=== PATIENT | female | born 1965 | race African-American/Black ===

== ENCOUNTER 2017-03-31 08:43 | Emergency (ER) | payer OTHER ==
[~2017-03-31] VITALS: Ht 154.9 cm; Wt 77.1 kg
[~2017-03-31 08:43] MED LIST: ATORVASTATIN CA10 MG ORAL; CIPROFLOXACIN500 M2 ORAL; CYCLOBENZAPRINE10 MG ORAL; FLUCONAZOLE100 MG ORAL; IBUPROFEN600 MG ORAL; ISENTRESS400 MG ORAL; MYCOSTATIN100000 UNI ORO; NORVIR100 MG ORAL; PREZISTA600 MG ORAL; PRILOSEC20 MG ORAL; ZOFRAN ODT4 MG ORAL; ZOFRAN4 MG ORAL
[2017-03-31 08:57] VITALS: BP 118/88
--- NOTE | 2017-03-31 09:43 | Emergency Room Report ---
History of Present Illness General Chief Complaint: Earache Source: Patient Present Illness HPI Patient states that she has been swimming a lot really and last week she noticed a sensation of something was cloudy her ear. She states that over the weekend she developed pain in her right ureter. She states that it also radiates her right jaw. She denies ear discharge. Denies fever or chills. She denies neck pain or difficulty swallowing. She has no other complaints. Allergies: Coded Allergies: SHELLFISH DERIVED (Unverified Allergy, Unknown, 07/26/16) Uncoded Allergies: SHELLFISH (Allergy, Unknown, 07/26/16) Patient History Past Medical History: see triage record, seizures, HIV Social History: Denies: alcohol use, drug use, smoking Last Menstrual Period: irreg Now: No Reviewed Nursing Documentation: PMH: Agreed, PSxH: Agreed Nursing Documentation-PMH Past Medical History: No History, Except For Hx Cancer: No Hx Gastrointestinal Problems: No Hx Neurological Problems: Yes Hx Cerebrovascular Accident: Yes - Seizure Hx Seizures: Yes Hx Headaches: Yes Hx Weakness: Yes Review of Systems All Other Systems: negative except mentioned in HPI Physical Exam Vital Signs Date Time Temp Pulse Resp B/P Pulse Ox O2 Delivery O2 Flow Rate FiO2 03/31/17 08:57 97.9 87 18 118/88 98 Room Air Sp02 EP Interpretation: reviewed, normal General Appearance: no apparent distress, alert, GCS 15, non-toxic Head: normocephalic, atraumatic Eyes: bilateral eye PERRL, bilateral eye normal inspection ENT: hearing grossly normal, normal pharynx, no angioedema, normal voice, uvula midline, other - R. External canal with swelling and +pustule inferior mid canal. +cerumen, unable to visualized TM. Neck: full range of motion, supple/symm/no masses Respiratory: no respiratory distress, no retraction, no accessory muscle use, speaking full sentences Cardiovascular #1: no edema Gastrointestinal: normal inspection, non-distended Rectal: deferred Musculoskeletal: back normal, gait/station normal, normal range of motion Neurologic: alert, oriented x3, responsive, motor strength/tone normal, sensory intact, speech normal Psychiatric: judgement/insight normal, memory normal, mood/affect normal, no suicidal/homicidal ideation Skin: normal color, no rash, warm/dry, well hydrated Medical Decision Making Diagnostic Impression: Primary Impression: Otitis externa ER Course This patient has clinical findings consistent with otitis externa. I will place the patient on topical eardrops. However, the patient does have a history of HIV and may be immunocompromised, so will give the patient a prescription for oral antibiotics but she was instructed to only use the antibiotics if she does not feel or get improvement in her ear pain in the next 48 hours. She's also instructed to take the oral antibiotics if she has worsening symptoms or development of fever. There is no evidence of facial abscess or other complications at this time. The patient's given close return precautions and followup instructions. Last Vital Signs Date Time Temp Pulse Resp B/P Pulse Ox O2 Delivery O2 Flow Rate FiO2 03/31/17 08:57 97.9 87 18 118/88 98 Room Air Status: improved Disposition: HOME, SELF-CARE Condition: Improved Referrals: [facility],REFERRING (PCP) Patient Instructions: Otitis Externa, [id number] DENIS MEIER D.O. March 31, 2017 09:43
[2017-03-31] MEDS ORDERED: AUGMENTIN 875-1 EAC1 ORAL (09:53)
[2017-03-31] MEDS ORDERED: FLOXIN10 ML OT (09:53)
[2017-03-31 10:03] VITALS: BP 118/88
== END 2017-03-31 10:03 | disposition home or self-care (01) ==
LOC: EMR 09:20
DX: H66.91 Otitis media, unspecified, right ear (principal); R68.84 Jaw pain; Z91.013 Allergy to seafood; Z86.73 Personal history of transient ischemic attack (TIA), and cerebral infarction without residual deficits
CPT/HCPCS: 99284

== ENCOUNTER 2017-06-08 13:13 | Emergency (ER) | payer OTHER ==
[~2017-06-08] VITALS: Ht 154.9 cm; Wt 79.4 kg
[~2017-06-08 13:13] MED LIST changes: +AUGMENTIN 875-1 EAC1 ORAL; +FLOXIN10 ML OT
[2017-06-08 13:27] VITALS: BP 121/78
[2017-06-08] MEDS ORDERED: PERMETHRIN60 GM TOPIC (13:47)
[2017-06-08 13:54] VITALS: BP 121/78
--- NOTE | 2017-06-08 20:39 | Emergency Room Report ---
History of Present Illness General Chief Complaint: Skin Rash/Abscess Source: Patient, Medical Record Present Illness HPI The patient is a 51-year-old female with a history of HIV presenting for rash. She states that she's had scabies in the past and this feels the same. She has seen lesions on the arms and legs primarily for the past month described as itchy and denies any pain. She denies any other symptoms Allergies: Coded Allergies: SHELLFISH DERIVED (Unverified Allergy, Unknown, 07/26/16) Uncoded Allergies: SHELLFISH (Allergy, Unknown, 07/26/16) Patient History Past Medical History: see triage record Pertinent Family History: none Reviewed Nursing Documentation: PMH: Agreed, PSxH: Agreed Nursing Documentation-PMH Past Medical History: No History, Except For Hx Cancer: No Hx Gastrointestinal Problems: No Hx Neurological Problems: Yes Hx Cerebrovascular Accident: Yes Hx Seizures: Yes - Last one 25 yrs ago Hx Headaches: Yes Hx Weakness: Yes Review of Systems All Other Systems: negative except mentioned in HPI Physical Exam Vital Signs Date Time Temp Pulse Resp B/P Pulse Ox O2 Delivery O2 Flow Rate FiO2 06/08/17 13:21 98.8 95 16 121/78 98 Room Air Sp02 EP Interpretation: reviewed, normal General Appearance: no apparent distress, alert, GCS 15, non-toxic Head: normocephalic, atraumatic Eyes: bilateral eye PERRL, bilateral eye normal inspection Genitourinary: normal inspection, no CVA tenderness Musculoskeletal: back normal, gait/station normal, normal range of motion, non- tender Neurologic: alert, oriented x3, responsive, motor strength/tone normal, sensory intact, speech normal Psychiatric: judgement/insight normal, memory normal, mood/affect normal, no suicidal/homicidal ideation Skin: rash - There are erythematous lesions in a linear pattern of the arms and legs. + excoriation markings Lymphatic: no adenopathy Medical Decision Making PA Attestation Dr. Tran is my supervising physician. Patient management was discussed with my supervising physician Diagnostic Impression: Primary Impression: Scabies ER Course The patient is a 51-year-old female with a history of HIV presenting for rash. Ddx considered include but not limited to insect bite, contact dermatitis, eczema, cellulitis, scabies, among others PE consistent with scabies. She will be MI'ed home with prescription for permethrin. ER precautions given Last Vital Signs Date Time Temp Pulse Resp B/P Pulse Ox O2 Delivery O2 Flow Rate FiO2 06/08/17 13:54 98.8 95 16 121/78 98 Room Air Status: improved Disposition: HOME, SELF-CARE Condition: Improved Scripts Permethrin* (ELIMITE*) 60 Gm Cream..g. 1 APPLIC TOPIC ONCE, #60 GM 0 Refills Apply cream from head to toe; leave on for 8-14 hours before washing off with water; may reapply in 1 week if live mites appear. Prov: LORY COLEY 06/08/17 Patient Instructions: Pruritus, Scabies, Pediatric Additional Instructions: I discussed my findings with the patient. All questions and concerns have been answered. Treatment and medication compliance have been addressed. I advised the patient that they need to follow up with PMD in 3-5 days. Return to ED if symptoms worsen, new symptoms arise, or if needed for any reason. Patient verbalized understanding of discharge instructions. LORY COLEY Jun 08, 2017 20:39
== END 2017-06-08 15:30 | disposition home or self-care (01) ==
LOC: EMR 13:40
DX: B86 Scabies (principal); Z86.73 Personal history of transient ischemic attack (TIA), and cerebral infarction without residual deficits; Z91.013 Allergy to seafood
CPT/HCPCS: 99283

== ENCOUNTER 2017-11-22 19:45 | Emergency (ER) | payer OTHER ==
[~2017-11-22] VITALS: Ht 154.9 cm; Wt 81.6 kg
[~2017-11-22 19:45] MED LIST changes: +PERMETHRIN60 GM TOPIC
[2017-11-22] MEDS ORDERED: Ipratropium 0.02% Inh Soln 2.5ml UD HHN ONE (20:15)
[2017-11-22] MEDS ORDERED: Ketorolac 30mg Inj IV ONE (20:15)
[2017-11-22] MEDS ORDERED: Albuterol ud Inhalation HHN ONE (20:15)
[2017-11-22 20:30] LABS: APPEARANCE,URINE CLEAR; BILIRUBIN, URINE NEGATIVE (NEGATIVE); COLOR,URINE PALE YELLOW; GLUCOSE, URINE (UA) NEGATIVE (NEGATIVE); KETONES,URINE NEGATIVE (NEGATIVE); LEUKOCYTE ESTERASE ,URINE 1+ (NEGATIVE); NITRITE,URINE NEGATIVE (NEGATIVE); PH,URINE 7 (4.5-8.0); PROTEIN,URINE NEGATIVE (NEGATIVE); UROBILINOGEN,URINE NORMAL MG/DL (0.0-1.0)
[2017-11-22 21:59] VITALS: BP 130/84
[2017-11-22 22:21] LABS: ANION GAP 7 mmol/L (5-15); BLOOD UREA NITROGEN 14 mg/dL (7-18); CALCIUM 8.6 MG/DL (8.5-10.1); CARBON DIOXIDE 31 MMOL/L (21-32); CHLORIDE 103 MMOL/L (98-107); CREATININE 0.9 MG/DL (0.55-1.30); POTASSIUM 3.4 MMOL/L (3.5-5.1); SODIUM 141 MMOL/L (136-145)
[2017-11-22 22:24] LABS: BASOPHILS % (AUTO) 0.7 % (0.0-2.0); EOSINOPHILS % (AUTO) 0.3 % (0.0-3.0); HEMATOCRIT 43.2 % (37.0-47.0); LYMPHOCYTES % (AUTO) 23.7 % (20.0-45.0); MEAN CORPUSCULAR VOLUME 90 FL (80-99); MONOCYTES % (AUTO) 6.7 % (1.0-10.0); NEUTROPHILS % (AUTO) 68.6 % (45.0-75.0); PLATELET COUNT 236 K/UL (150-450); RED BLOOD COUNT 4.81 M/UL (4.20-5.40); RED CELL DISTRIBUTION WIDTH 12.1 % (11.6-14.8); WHITE BLOOD COUNT 6.8 K/UL (4.8-10.8)
[2017-11-22 22:35] LABS: ALANINE AMINOTRANSFERASE 18 U/L (12-78); ALBUMIN 4.3 G/DL (3.4-5.0); ALKALINE PHOSPHATASE 144 U/L (46-116); ASPARTATE AMINO TRANSFERASE 22 U/L (15-37); BILIRUBIN,TOTAL 0.2 MG/DL (0.2-1.0); CKMB 0.5 NG/ML (0.0-3.6); CREATINE KINASE 274 U/L (26-308)
[2017-11-22] MEDS ORDERED: ALBUTEROL SULF8.5 GM INH (22:48)
[2017-11-22] MEDS ORDERED: PREDNISONE20 MG ORAL (22:48)
[2017-11-22] MEDS ORDERED: AMOXICILLIN500 MG ORAL (22:48)
[2017-11-22 23:15] VITALS: BP 130/84
--- NOTE | 2017-11-22 23:15 | Emergency Room Report ---
History of Present Illness General Chief Complaint: Dyspnea/Respdistress Source: Patient Present Illness HPI 52-year-old female presents ED complaining of shortness of breath started 2 days ago. Patient has difficulty with deep breaths. Notes cough. Denies fevers chills. Denies chest pain. Also complaining of generalized bodyaches, 8 and 10, throbbing, nonradiating. States she feels weak. Patient has history of HIV and is compliant with her medications. Denies sick contacts or recent travel. No aggravating relieving factors. Denies any other associated symptoms Allergies: Coded Allergies: SHELLFISH DERIVED (Unverified Allergy, Unknown, 07/26/16) Uncoded Allergies: SHELLFISH (Allergy, Unknown, 07/26/16) Patient History Past Medical History: HIV Past Surgical History: none Pertinent Family History: none Social History: Denies: smoking, alcohol use, drug use Last Menstrual Period: NA Now: No Immunizations: UTD Reviewed Nursing Documentation: PMH: Agreed, PSxH: Agreed Nursing Documentation-PMH Hx Cancer: No Hx Gastrointestinal Problems: No Hx Neurological Problems: Yes Hx Cerebrovascular Accident: Yes Hx Seizures: Yes - Last one 25 yrs ago Hx Headaches: Yes Hx Weakness: Yes Review of Systems All Other Systems: negative except mentioned in HPI Physical Exam Vital Signs Date Time Temp Pulse Resp B/P (MAP) Pulse Ox O2 Delivery O2 Flow Rate FiO2 11/22/17 19:54 100.9 121 12 125/80 97 Room Air Sp02 EP Interpretation: reviewed, normal General Appearance: no apparent distress, alert, GCS 15, non-toxic Head: normocephalic, atraumatic Eyes: bilateral eye normal inspection, bilateral eye PERRL ENT: hearing grossly normal, normal pharynx, no angioedema, normal voice Neck: full range of motion, supple/symm/no masses Respiratory: chest non-tender, decreased breath sounds, speaking full sentences Cardiovascular #1: regular rate, rhythm, no edema Cardiovascular #2: 2+ carotid (R), 2+ carotid (L), 2+ radial (R), 2+ radial (L) , 2+ dorsalis pedis (R), 2+ dorsalis pedis (L) Gastrointestinal: normal bowel sounds, non tender, soft, non-distended, no guarding, no rebound Rectal: deferred Genitourinary: normal inspection, no CVA tenderness Musculoskeletal: back normal, gait/station normal, normal range of motion, non- tender Neurologic: alert, oriented x3, responsive, motor strength/tone normal, sensory intact, speech normal Psychiatric: judgement/insight normal, memory normal, mood/affect normal, no suicidal/homicidal ideation Reflexes: 3+ bicep (R), 3+ bicep (L), 3+ tricep (R), 3+ tricep (L), 3+ knee (R) , 3+ knee (L) Skin: normal color, no rash, warm/dry, well hydrated Lymphatic: no adenopathy Medical Decision Making Diagnostic Impression: Primary Impression: Atypical pneumonia ER Course Hospital Course 52-year-old female presents ED complaining of bodyaches, weakness, shortness of breath Differential diagnoses include: URI, bronchitis, asthma/COPD, pneumonia Clinical course Patient placed on stretcher. After initial history, physical exam reveals an elderly male in no acute distress. Bilateral TM unremarkable. No pharyngeal erythema. No tonsillar exudates. No lymphadenopathy. reduced breath sounds I ordered labs, IV fluids, Toradol, chest x-ray, EKG, breathing treatments Labs reviewed-no leukocytosis, hemoglobin/hematocrit stable, electrolytes okay, trop negative EKG - sinus tachycardia Chest x-ray shows atelectasis On reassessment patient states she feels better. breath sounds improved after breathign treatmnets Given patient's history of immunocompromise we will start antibiotics Diagnosis - atypical pneumonia Stable and discharged home with prescriptions for amoxicillin, albuterol, prednisone. Instructed to followup with PMD. Return to ED if symptoms recur or worsen Labs Test 11/22/17 20:04 11/22/17 21:50 Urine Color Pale yellow Urine Appearance Clear Urine pH 7 (4.5-8.0) Urine Specific [place] 1.005 (1.005-1.035) Urine Protein Negative (NEGATIVE) Urine Glucose (UA) Negative (NEGATIVE) Urine Ketones Negative (NEGATIVE) Urine Occult Blood 3+ (NEGATIVE) Urine Nitrite Negative (NEGATIVE) Urine Bilirubin Negative (NEGATIVE) Urine Urobilinogen Normal MG/DL (0.0-1.0) Urine Leukocyte Esterase 1+ (NEGATIVE) Urine RBC 2-4 /HPF (0 - 2) Urine WBC 0-2 /HPF (0 - 2) Urine Squamous Epithelial Cells Few /LPF (NONE/OCC) Urine Bacteria Few /HPF (NONE) White Blood Count 6.8 K/UL (4.8-10.8) Red Blood Count 4.81 M/UL (4.20-5.40) Hemoglobin 14.0 G/DL (12.0-16.0) Hematocrit 43.2 % (37.0-47.0) Mean Corpuscular Volume 90 FL (80-99) Mean Corpuscular Hemoglobin 29.0 PG (27.0-31.0) Mean Corpuscular Hemoglobin Concent 32.3 G/DL (32.0-36.0) Red Cell Distribution Width 12.1 % (11.6-14.8) Platelet Count 236 K/UL (150-450) Mean Platelet Volume 8.2 FL (6.5-10.1) Neutrophils (%) (Auto) 68.6 % (45.0-75.0) Lymphocytes (%) (Auto) 23.7 % (20.0-45.0) Monocytes (%) (Auto) 6.7 % (1.0-10.0) Eosinophils (%) (Auto) 0.3 % (0.0-3.0) Basophils (%) (Auto) 0.7 % (0.0-2.0) Sodium Level 141 MMOL/L (136-145) Potassium Level 3.4 MMOL/L (3.5-5.1) Chloride Level 103 MMOL/L (98-107) Carbon Dioxide Level 31 MMOL/L (21-32) Anion Gap 7 mmol/L (5-15) Blood Urea Nitrogen 14 mg/dL (7-18) Creatinine 0.9 MG/DL (0.55-1.30) Estimat Glomerular Filtration Rate > 60 mL/min (>60) Glucose Level 104 MG/DL (74-106) Lactic Acid Level 1.50 mmol/L (0.66-2.22) Calcium Level 8.6 MG/DL (8.5-10.1) Total Bilirubin 0.2 MG/DL (0.2-1.0) Aspartate Amino Transf (AST/SGOT) 22 U/L (15-37) Alanine Aminotransferase (ALT/SGPT) 18 U/L (12-78) Alkaline Phosphatase 144 U/L (46-116) Total Creatine Kinase 274 U/L (26-308) Creatine Kinase MB 0.5 NG/ML (0.0-3.6) Creatine Kinase MB Relative Index 0.1 Troponin I 0.000 ng/mL (0.000-0.056) Pro-B-Type Natriuretic Peptide 19 pg/mL (0-125) Total Protein 8.5 G/DL (6.4-8.2) Albumin 4.3 G/DL (3.4-5.0) Globulin 4.2 g/dL Albumin/Globulin Ratio 1.0 (1.0-2.7) EKG Diagnostic Results Rate: tachycardiac Rhythm: NSR ST Segments: no acute changes ASA given to the pt in ED: No Rhythm Strip Diag. Results EP Interpretation: yes Rhythm: NSR, no PVC's, no ectopy Chest X-Ray Diagnostic Results Chest X-Ray Diagnostic Results : Chest X-Ray Ordered: Yes # of Views/Limited/Complete: 1 View Indication: Shortness of Breath EP Interpretation: Yes Interpretation: no consolidation, no effusion, no pneumothorax, other - atelectasis bilateral lower lung bases Impression: Other - atelectasis Electronically Signed by: Electronically signed by Bashir Murrell MD Last Vital Signs Date Time Temp Pulse Resp B/P (MAP) Pulse Ox O2 Delivery O2 Flow Rate FiO2 11/22/17 23:07 107 12 97 Room Air 11/22/17 19:54 100.9 125/80 Status: improved Disposition: HOME, SELF-CARE Condition: Stable Scripts Albuterol Sulfate* (ALBUTEROL SULFATE MDI*) 8.5 Gm Hfa.aer.ad 2 PUFF INH Q6H, #1 EA 0 Refills Prov: BASHIR MURRELL M.D. 11/22/17 Prednisone* (PREDNISONE*) 20 Mg Tablet 40 MG ORAL DAILY, #10 TAB Prov: BASHIR MURRELL M.D. 11/22/17 Amoxicillin* (AMOXIL*) 500 Mg Capsule 500 MG ORAL THREE TIMES A DAY, #21 CAP Prov: BASHIR MURRELL M.D. 11/22/17 Patient Instructions: Community-Acquired Pneumonia, Adult, [id number] BASHIR MURRELL M.D. Nov 22, 2017 23:15
--- NOTE | 2017-11-23 10:39 | Diagnostic Imaging Report ---
Indication: Dyspnea Technique: XRAY Chest 1v Comparison: July 26, 2016 Findings: Heart size and mediastinal contours are within normal limits and stable compared to the prior exam. There is no focal consolidation, pneumothorax or pleural effusion. Osseous structures demonstrate no acute abnormality. Impression: No radiographic evidence of acute cardiopulmonary disease.
--- NOTE | 2017-11-26 19:26 | Cardiology Report ---
APPROVED REPORT EKG Measurement Heart [id number] Sinus tachycardia Cannot rule out Anterior infarct, age undetermined Abnormal ECG
== END 2017-11-22 23:15 | disposition home or self-care (01) ==
LOC: EMR 22:40
DX: J18.9 Pneumonia, unspecified organism (principal); Z91.013 Allergy to seafood; Z86.73 Personal history of transient ischemic attack (TIA), and cerebral infarction without residual deficits; R53.1 Weakness
CPT/HCPCS: 36415; 71010; 80053; 81003; 82550; 82553; 83605; 83880; 84484; 85025; 86710; 93005; 94640; 94664; 96374; 96375; 99284; J1885

== ENCOUNTER 2017-11-24 11:47 | Inpatient (IN) | payer OTHER ==
[~2017-11-24] VITALS: Ht 157.5 cm; Wt 81.6 kg
[~2017-11-24 11:47] MED LIST changes: +ALBUTEROL SULF8.5 GM INH; +AMOXICILLIN500 MG ORAL; +PREDNISONE20 MG ORAL
[2017-11-24 12:02] VITALS: BP 140/80
[2017-11-24 13:20] LABS: BASOPHILS % (AUTO) 0.4 % (0.0-2.0); EOSINOPHILS % (AUTO) 0.3 % (0.0-3.0); HEMATOCRIT 40.3 % (37.0-47.0); HEMOGLOBIN 12.9 G/DL (12.0-16.0); LYMPHOCYTES % (AUTO) 17.1 % (20.0-45.0); MEAN CORPUSCULAR VOLUME 89 FL (80-99); MONOCYTES % (AUTO) 7.6 % (1.0-10.0); NEUTROPHILS % (AUTO) 74.7 % (45.0-75.0); PLATELET COUNT 222 K/UL (150-450); RED BLOOD COUNT 4.53 M/UL (4.20-5.40); RED CELL DISTRIBUTION WIDTH 11.7 % (11.6-14.8); WHITE BLOOD COUNT 9.5 K/UL (4.8-10.8)
[2017-11-24 13:22] LABS: APPEARANCE,URINE CLEAR; BILIRUBIN, URINE NEGATIVE (NEGATIVE); COLOR,URINE PALE YELLOW; GLUCOSE, URINE (UA) NEGATIVE (NEGATIVE); KETONES,URINE NEGATIVE (NEGATIVE); LEUKOCYTE ESTERASE ,URINE NEGATIVE (NEGATIVE); NITRITE,URINE NEGATIVE (NEGATIVE); PH,URINE 7 (4.5-8.0); PROTEIN,URINE NEGATIVE (NEGATIVE); UROBILINOGEN,URINE NORMAL MG/DL (0.0-1.0)
[2017-11-24] MEDS ORDERED: Albuterol/Ipratropium 3ml neb HHN ONE (13:30)
[2017-11-24 13:32] LABS: ANION GAP 9 mmol/L (5-15); BLOOD UREA NITROGEN 13 mg/dL (7-18); CALCIUM 7.7 MG/DL (8.5-10.1); CARBON DIOXIDE 29 MMOL/L (21-32); CHLORIDE 104 MMOL/L (98-107); CREATININE 0.7 MG/DL (0.55-1.30); SODIUM 142 MMOL/L (136-145)
[2017-11-24 13:37] LABS: ALANINE AMINOTRANSFERASE 18 U/L (12-78); ALBUMIN 3.7 G/DL (3.4-5.0); ALBUMIN/GLOBULIN RATIO 0.9 (1.0-2.7); ALKALINE PHOSPHATASE 118 U/L (46-116); ASPARTATE AMINO TRANSFERASE 18 U/L (15-37); BILIRUBIN,TOTAL 0.2 MG/DL (0.2-1.0); CREATINE KINASE 254 U/L (26-308)
[2017-11-24 16:49] VITALS: BP 132/81
--- NOTE | 2017-11-24 17:16 | Emergency Room Report ---
History of Present Illness General Chief Complaint: Flu Like Symptoms Present Illness HPI 52-year-old female presents to the emergency department complaining of bloody productive cough, bodyaches, fatigue, fevers and chills times one week. Patient was seen in the emergency department 2 days ago and was discharged with antibiotics. Patient states she has had progression of her symptoms and is experiencing increasing difficulty breathing, increase in mucus production and wheezes. Patient reports history of HIV she states that her viral load is been undetectable for years and she shows recent blood work showing CD4 count of 800. She states she is up-to-date with her vaccinations. Denies nausea or vomiting. Denies neck pain, neck stiffness or photophobia. Denies night sweats or recent significant changes in weight. Denies CP, Palpitations, LOC, AMS, dizziness, Changes in Vision, Sensation, paresthesias, or a sudden severe headache. (Janene Gilliam P.A.) Allergies: Coded Allergies: SHELLFISH DERIVED (Unverified Allergy, Unknown, 07/26/16) Uncoded Allergies: SHELLFISH (Allergy, Unknown, 07/26/16) Patient History Past Medical History: see triage record, HIV Past Surgical History: none Pertinent Family History: none Now: No Immunizations: UTD Reviewed Nursing Documentation: PMH: Agreed, PSxH: Agreed (Janene Gilliam P.Maddie) Nursing Documentation-PMH Hx Cancer: No Hx Gastrointestinal Problems: No Hx Neurological Problems: Yes Hx Cerebrovascular Accident: Yes Hx Seizures: Yes - Last one 25 yrs ago Hx Headaches: Yes Hx Weakness: Yes (Janene Gilliam P.A.) Review of Systems All Other Systems: negative except mentioned in HPI (Janene Gilliam P.A.) Physical Exam Vital Signs Date Time Temp Pulse Resp B/P (MAP) Pulse Ox O2 Delivery O2 Flow Rate FiO2 11/24/17 11:49 98.1 114 20 140/80 99 Room Air Sp02 EP Interpretation: reviewed, normal General Appearance: no apparent distress, alert, GCS 15, non-toxic Head: normocephalic, atraumatic Eyes: bilateral eye normal inspection, bilateral eye PERRL ENT: hearing grossly normal, no angioedema, normal voice, TMs + canals normal, uvula midline, pharyngeal erythema Neck: full range of motion, supple/symm/no masses Respiratory: chest non-tender, speaking full sentences, wheezing Cardiovascular #1: regular rate, rhythm, no edema, normal capillary refill Gastrointestinal: normal bowel sounds, non tender, soft Rectal: deferred Genitourinary: normal inspection, no CVA tenderness Musculoskeletal: back normal, gait/station normal, normal range of motion, non- tender Neurologic: alert, oriented x3, responsive, motor strength/tone normal, sensory intact, speech normal Skin: normal color, no rash, warm/dry, well hydrated Lymphatic: no adenopathy, other - bilateral submandibular LAD (Janene Gilliam) Medical Decision Making PA Attestation Dr. Colin is my supervising Physician whom patient management has been discussed with. (Janene Gilliam) Diagnostic Impression: Primary Impression: Atypical pneumonia Additional Impressions: Viral syndrome HIV disease ER Course 52-year-old female presents to the emergency department complaining of bloody productive cough, bodyaches, fatigue, fevers and chills times one week. Patient was seen in the emergency department 2 days ago and was discharged with antibiotics. Patient states she has had progression of her symptoms and is experiencing increasing difficulty breathing, increase in mucus production and wheezes. Patient reports history of HIV she states that her viral load is been undetectable for years and she shows recent blood work showing CD4 count of 800. She states she is up-to-date with her vaccinations. Denies nausea or vomiting. Denies neck pain, neck stiffness or photophobia. Denies night sweats or recent significant changes in weight. Denies CP, Palpitations, LOC, AMS, dizziness, Changes in Vision, Sensation, paresthesias, or a sudden severe headache. Ddx considered but are not limited to URI, pneumonia, PE, pulmonary edema, bronchitis, OH, CHF Vital signs: Pt. has fever of 100.6, tachycardic 114 bpm, mildly-toxic in appearance. H&PE are most consistent with possible PNA or influenza with failed outpatient abx treatment, and hx of immune compromise. - mild distress wheezing. ORDERS: -CXR 1 View: No pulmonary infiltrates, no atelectasis, no effusions per preliminary read by Dr. Tran. -CBC: No leukocytosis. -CMP: Electrolytes are okay, WNL -UA: Most indicative of contamination: presence of equal amounts of bacteria and squamous cells, no elevation in inflammatory markers, nitrite negative. -Lactic Acid: WNL -Blood Cultures x 2: Pending -Influenza cultures: Negative -Troponin: 0.00 -EK NSR, no acute ST changes. - interpreted by Dr. Colin ED INTERVENTIONS: - Angel Otto DISPOSITION: at this time pt. will be admitted to Dr. Cesar for possible atypical pneumonia and failed outpatient treatment in immune compromised /HIV pt. Dr. Cesar agreed to admit the pt. and to continue pt. care management. Labs Test 11/24/17 13:00 White Blood Count 9.5 K/UL (4.8-10.8) Red Blood Count 4.53 M/UL (4.20-5.40) Hemoglobin 12.9 G/DL (12.0-16.0) Hematocrit 40.3 % (37.0-47.0) Mean Corpuscular Volume 89 FL (80-99) Mean Corpuscular Hemoglobin 28.5 PG (27.0-31.0) Mean Corpuscular Hemoglobin Concent 32.0 G/DL (32.0-36.0) Red Cell Distribution Width 11.7 % (11.6-14.8) Platelet Count 222 K/UL (150-450) Mean Platelet Volume 8.1 FL (6.5-10.1) Neutrophils (%) (Auto) 74.7 % (45.0-75.0) Lymphocytes (%) (Auto) 17.1 % (20.0-45.0) Monocytes (%) (Auto) 7.6 % (1.0-10.0) Eosinophils (%) (Auto) 0.3 % (0.0-3.0) Basophils (%) (Auto) 0.4 % (0.0-2.0) Urine Color Pale yellow Urine Appearance Clear Urine pH 7 (4.5-8.0) Urine Specific [place] 1.010 (1.005-1.035) Urine Protein Negative (NEGATIVE) Urine Glucose (UA) Negative (NEGATIVE) Urine Ketones Negative (NEGATIVE) Urine Occult Blood 2+ (NEGATIVE) Urine Nitrite Negative (NEGATIVE) Urine Bilirubin Negative (NEGATIVE) Urine Urobilinogen Normal MG/DL (0.0-1.0) Urine Leukocyte Esterase Negative (NEGATIVE) Urine RBC 2-4 /HPF (0 - 2) Urine WBC 0-2 /HPF (0 - 2) Urine Squamous Epithelial Cells Few /LPF (NONE/OCC) Urine Bacteria Occasional /HPF (NONE) Sodium Level 142 MMOL/L (136-145) Potassium Level 3.0 MMOL/L (3.5-5.1) Chloride Level 104 MMOL/L (98-107) Carbon Dioxide Level 29 MMOL/L (21-32) Anion Gap 9 mmol/L (5-15) Blood Urea Nitrogen 13 mg/dL (7-18) Creatinine 0.7 MG/DL (0.55-1.30) Estimat Glomerular Filtration Rate > 60 mL/min (>60) Glucose Level 107 MG/DL (74-106) Lactic Acid Level 1.10 mmol/L (0.66-2.22) Calcium Level 7.7 MG/DL (8.5-10.1) Total Bilirubin 0.2 MG/DL (0.2-1.0) Aspartate Amino Transf (AST/SGOT) 18 U/L (15-37) Alanine Aminotransferase (ALT/SGPT) 18 U/L (12-78) Alkaline Phosphatase 118 U/L (46-116) Total Creatine Kinase 254 U/L (26-308) Troponin I 0.000 ng/mL (0.000-0.056) Total Protein 7.8 G/DL (6.4-8.2) Albumin 3.7 G/DL (3.4-5.0) Globulin 4.1 g/dL Albumin/Globulin Ratio 0.9 (1.0-2.7) (Janene Gilliam P.A.) ER Course I have reviewed the PA's interpretation of Xray results and agree with findings. (Lizette Colin M.D.) EKG Diagnostic Results EP Interpretation: Dr. colin Rate: normal Rhythm: NSR ST Segments: no acute changes ASA given to the pt in ED: No PA Scribe Text This interpretation was prescribed by ANNA Gilliam. (Janene Gilliam P.Maddie) Chest X-Ray Diagnostic Results Chest X-Ray Diagnostic Results : Chest X-Ray Ordered: Yes # of Views/Limited/Complete: 1 View Indication: Shortness of Breath - SOB, productive cough EP Interpretation: Yes PA Xray: Interpretation reviewed, by supervising MD Interpretation: no consolidation, no effusion Impression: No acute disease Electronically Signed by: Janene Gilliam PA-C (Janene Gilliam) Last Vital Signs Date Time Temp Pulse Resp B/P (MAP) Pulse Ox O2 Delivery O2 Flow Rate FiO2 11/24/17 16:49 97.6 74 21 132/81 97 Room Air (Janene Gilliam) Disposition: ADMITTED INPATIENT Condition: Serious Referrals: [facility],REFERR[facility] (PCP) Janene Gilliam Nov 24, 2017 17:16 Lizette Colin M.D. Nov 30, 2017 14:05
[2017-11-24] MEDS ORDERED: Cyclobenzaprine 10mg Tab ORAL PRN (17:45)
[2017-11-24] MEDS ORDERED: Darunavir 600mg tab ORAL SCH (18:00)
[2017-11-24] MEDS ORDERED: Augmentin 875mg Tab ORAL SCH (18:00)
[2017-11-24] MEDS ORDERED: Isentress 400mg tab ORAL SCH (18:00)
[2017-11-24] MEDS ORDERED: Heparin Sod 1000 units/ml 10ml INJ SCH ×2 (18:00→21:00)
[2017-11-24] MEDS ORDERED: Amoxicillin 500mg cap ORAL SCH (19:00)
[2017-11-24] MEDS: Albuterol 90mcg Inhaler 8gm INH SCH ×2 (19:00→23:41)
[2017-11-24] MEDS ORDERED: Norco 5mg/325mg tab ORAL PRN (19:30)
[2017-11-24 20:00] VITALS: BP 130/85
[2017-11-24] MEDS: Heparin 5000 units/ml inj SUBQ SCH (22:00)
[2017-11-24] MEDS: PREZISTA 600 MG ORAL SCH (22:27)
[2017-11-24] MEDS: ISENTRESS 400 MG ORAL SCH (22:28)
[2017-11-24] MEDS: NORVIR 100 MG ORAL SCH (22:30)
[2017-11-25] VITALS: BP 124/82
[2017-11-25 04:55] VITALS: BP 102/72
[2017-11-25 07:23] LABS: HEMATOCRIT 39.9 % (37.0-47.0); HEMOGLOBIN 13.1 G/DL (12.0-16.0); MEAN CORPUSCULAR VOLUME 89 FL (80-99); PLATELET COUNT 235 K/UL (150-450); RED BLOOD COUNT 4.48 M/UL (4.20-5.40); RED CELL DISTRIBUTION WIDTH 11.9 % (11.6-14.8); WHITE BLOOD COUNT 7.6 K/UL (4.8-10.8)
[2017-11-25] MEDS: Albuterol 90mcg Inhaler 8gm INH SCH ×2 (07:35→12:58)
[2017-11-25 07:48] LABS: ANION GAP 8 mmol/L (5-15); BLOOD UREA NITROGEN 13 mg/dL (7-18); CALCIUM 7.7 MG/DL (8.5-10.1); CARBON DIOXIDE 29 MMOL/L (21-32); CHLORIDE 104 MMOL/L (98-107); CREATININE 0.7 MG/DL (0.55-1.30); POTASSIUM 3.8 MMOL/L (3.5-5.1); SODIUM 141 MMOL/L (136-145)
[2017-11-25 08:00] VITALS: BP 104/72
[2017-11-25] MEDS: Heparin 5000 units/ml inj SUBQ SCH (08:00)
--- NOTE | 2017-11-25 08:29 | Diagnostic Imaging Report ---
Indication: Pain Technique: XRAY Chest 1v Comparison: 11/23/2017 Findings: Heart size and mediastinal contours are within normal limits and stable compared to the prior exam. There is no focal consolidation, pneumothorax or pleural effusion. Osseous structures demonstrate no acute abnormality. Impression: No radiographic evidence of acute cardiopulmonary disease. No significant interval change compared to the prior exam.
[2017-11-25] MEDS ORDERED: Ritonavir 100mg tab ORAL SCH ×2 (09:00→15:30)
[2017-11-25] MEDS: NORVIR 100 MG ORAL SCH (10:00)
[2017-11-25] MEDS: PREZISTA 600 MG ORAL SCH (10:00)
[2017-11-25] MEDS: ISENTRESS 400 MG ORAL SCH (10:00)
[2017-11-25] MEDS ORDERED: Oseltamivir 75mg cap ORAL SCH (11:00)
[2017-11-25 12:00] VITALS: BP 127/76
--- NOTE | 2017-11-25 12:54 | Consultation ---
History of Present Illness General Date patient seen: Nov 25, 2017 - 12:43p Chief Complaint: Flu Like Symptoms Present Illness HPI 52 y/o F with hx of CVA, seizure disorder, HIV per patient compliang and VL UD with CD4 800 presents to ED on 11/24 with bloody productive cough, body aches, fatigue, f/c for ~1 week. Patient seen in the ED 2 days ago and discharge on 7 days of amoxicillina and prednisone 40mg.. However had progression of her symptoms and worsenign SOB, increase mucus production and wheezing Deniser n/v, neck stiffness, photophpbia, night sweats, wt loss, [place]. IN ED low grade fever 100,6m tachy to 114 and mildly toxic in appearance Allergies: Coded Allergies: SHELLFISH DERIVED (Unverified Allergy, Unknown, 07/26/16) Uncoded Allergies: SHELLFISH (Allergy, Unknown, 07/26/16) Medication History Scheduled Albuterol Sulfate* (Albuterol Sulfate Mdi*), 2 PUFF INH Q6H Amoxicillin* (Amoxil*), 500 MG ORAL THREE TIMES A DAY Atorvastatin Calcium* (Lipitor*), 10 MG ORAL BEDTIME, (Reported) Ciprofloxacin Hcl* (Ciprofloxacin Hcl*), 500 MG ORAL Q12H Darunavir Ethanolate* (Prezista*), 600 MG ORAL BID, (Reported) Fluconazole (Fluconazole), 100 MG ORAL DAILY Ibuprofen* (Motrin*), 600 MG ORAL THREE TIMES A DAY Nystatin (Nystatin), 100,000 UNITS SANJEEV BID Omeprazole (Prilosec), 20 MG ORAL DAILY Oseltamivir Phosphate (Tamiflu), 45 MG ORAL TWICE A DAY, (Reported) Prednisone* (Prednisone*), 40 MG ORAL DAILY Raltegravir (Isentress), 400 MG ORAL BID, (Reported) Ritonavir* (Norvir*), 100 MG ORAL BID, (Reported) Scheduled PRN Cyclobenzaprine Hcl* (Flexeril*), 10 MG ORAL TID PRN for Muscle Spasm Ondansetron (Zofran), 4 MG ORAL Q6H PRN for Nausea & Vomiting Discontinued Medications Amoxicillin/Potassium Clav 875-125* (Augmentin 875-125 Tablet*), 1 TAB ORAL TWICE A DAY Discontinued Reason: Therapy completed Ofloxacin (Floxin), 10 ML OT once daily Discontinued Reason: Therapy completed Permethrin* (Elimite*), 1 APPLIC TOPIC ONCE Discontinued Reason: Therapy completed Patient History Healthcare decision maker Resuscitation status Full Code Advanced Directive on File Patient History Narrative PMhx: as above Shx: reviewed Fhx: non contributory Review of Systems ROS Narrative As per HPI, otherwise negative Physical Exam Physical Exam Narrative Gen: no distress HEENT: PERRL, MOM lungs: no wheezing, CTA x2 Abd: Bs+, S+d, NT, ND Ext: no edema Skin no rash Last 24 Hour Vital Signs Date Time Temp Pulse Resp B/P (MAP) Pulse Ox O2 Delivery O2 Flow Rate FiO2 11/25/17 08:00 98.2 82 20 104/72 11/25/17 07:38 86 20 98 Room Air 11/25/17 07:31 86 20 98 Room Air 11/25/17 04:55 97.7 86 20 102/72 98 Room Air 11/25/17 00:00 98.2 69 20 124/82 97 Room Air 11/25/17 00:00 Room Air 11/24/17 23:46 80 18 98 Room Air 21 11/24/17 23:44 80 18 98 Room Air 21 11/24/17 20:00 Room Air 11/24/17 20:00 98.1 93 20 130/85 97 11/24/17 19:43 21 11/24/17 19:43 21 11/24/17 16:49 97.6 74 21 132/81 97 Room Air 11/24/17 15:07 98.1 20 140/80 100 Room Air 11/24/17 13:53 100 20 Room Air 11/24/17 13:52 100 20 100 Room Air 11/24/17 13:40 90 18 97 Room Air Intake and Output 11/24/17 11/25/17 19:00 07:00 Intake Total 240 ml 240 ml Balance 240 ml 240 ml Intake Oral 240 ml 240 ml # Voids 2 Laboratory Tests Test 11/24/17 13:00 11/25/17 06:45 White Blood Count 9.5 K/UL (4.8-10.8) 7.6 K/UL (4.8-10.8) Red Blood Count 4.53 M/UL (4.20-5.40) 4.48 M/UL (4.20-5.40) Hemoglobin 12.9 G/DL (12.0-16.0) 13.1 G/DL (12.0-16.0) Hematocrit 40.3 % (37.0-47.0) 39.9 % (37.0-47.0) Mean Corpuscular Volume 89 FL (80-99) 89 FL (80-99) Mean Corpuscular Hemoglobin 28.5 PG (27.0-31.0) 29.2 PG (27.0-31.0) Mean Corpuscular Hemoglobin Concent 32.0 G/DL (32.0-36.0) 32.8 G/DL (32.0-36.0) Red Cell Distribution Width 11.7 % (11.6-14.8) 11.9 % (11.6-14.8) Platelet Count 222 K/UL (150-450) 235 K/UL (150-450) Mean Platelet Volume 8.1 FL (6.5-10.1) 8.0 FL (6.5-10.1) Neutrophils (%) (Auto) 74.7 % (45.0-75.0) % (45.0-75.0) Lymphocytes (%) (Auto) 17.1 % (20.0-45.0) L % (20.0-45.0) Monocytes (%) (Auto) 7.6 % (1.0-10.0) % (1.0-10.0) Eosinophils (%) (Auto) 0.3 % (0.0-3.0) % (0.0-3.0) Basophils (%) (Auto) 0.4 % (0.0-2.0) % (0.0-2.0) Urine Color Pale yellow Urine Appearance Clear Urine pH 7 (4.5-8.0) Urine Specific [place] 1.010 (1.005-1.035) Urine Protein Negative (NEGATIVE) Urine Glucose (UA) Negative (NEGATIVE) Urine Ketones Negative (NEGATIVE) Urine Occult Blood 2+ (NEGATIVE) H Urine Nitrite Negative (NEGATIVE) Urine Bilirubin Negative (NEGATIVE) Urine Urobilinogen Normal MG/DL (0.0-1.0) Urine Leukocyte Esterase Negative (NEGATIVE) Urine RBC 2-4 /HPF (0 - 2) H Urine WBC 0-2 /HPF (0 - 2) Urine Squamous Epithelial Cells Few /LPF (NONE/OCC) Urine Bacteria Occasional /HPF (NONE) Sodium Level 142 MMOL/L (136-145) 141 MMOL/L (136-145) Potassium Level 3.0 MMOL/L (3.5-5.1) L 3.8 MMOL/L (3.5-5.1) Chloride Level 104 MMOL/L (98-107) 104 MMOL/L (98-107) Carbon Dioxide Level 29 MMOL/L (21-32) 29 MMOL/L (21-32) Anion Gap 9 mmol/L (5-15) 8 mmol/L (5-15) Blood Urea Nitrogen 13 mg/dL (7-18) 13 mg/dL (7-18) Creatinine 0.7 MG/DL (0.55-1.30) 0.7 MG/DL (0.55-1.30) Estimat Glomerular Filtration Rate > 60 mL/min (>60) > 60 mL/min (>60) Glucose Level 107 MG/DL (74-106) H 84 MG/DL (74-106) Lactic Acid Level 1.10 mmol/L (0.66-2.22) Calcium Level 7.7 MG/DL (8.5-10.1) L 7.7 MG/DL (8.5-10.1) L Total Bilirubin 0.2 MG/DL (0.2-1.0) Aspartate Amino Transf (AST/SGOT) 18 U/L (15-37) Alanine Aminotransferase (ALT/SGPT) 18 U/L (12-78) Alkaline Phosphatase 118 U/L (46-116) H Total Creatine Kinase 254 U/L (26-308) Troponin I 0.000 ng/mL (0.000-0.056) Total Protein 7.8 G/DL (6.4-8.2) Albumin 3.7 G/DL (3.4-5.0) Globulin 4.1 g/dL Albumin/Globulin Ratio 0.9 (1.0-2.7) L Differential Total Cells Counted 100 Neutrophils % (Manual) 57 % (45-75) Lymphocytes % (Manual) 33 % (20-45) Monocytes % (Manual) 10 % (1-10) Eosinophils % (Manual) 0 % (0-3) Basophils % (Manual) 0 % (0-2) Band Neutrophils 0 % (0-8) Platelet Estimate Adequate Platelet Morphology Normal Red Blood Cell Morphology Normal Microbiology Date/Time Source Procedure Growth Status 11/24/17 18:30 Nasal Nares Influenza Types A,B Antigen (DIANNA) - Final Complete Height (Feet): 5 Height (Inches): 2.00 Weight (Pounds): 180 Medications Current Medications Medications (Trade) Dose Ordered Sig/Nathan Route PRN Reason Start Time Stop Time Status Last Admin Dose Admin Acetaminophen/ Hydrocodone Bitart ([place] 5/325) 1 tab Q8H PRN ORAL PAIN LEVEL 4-10 11/24/17 19:30 12/01/17 19:29 Albuterol Sulfate (Proventil MDI) 2 puff Q6HRT INH 11/24/17 19:00 12/24/17 18:59 11/25/17 07:35 Amoxicillin (Amoxil) 500 mg THREE TIMES A DAY ORAL 11/25/17 22:00 12/02/17 21:59 Atorvastatin Calcium (Lipitor) 10 mg BEDTIME ORAL 11/24/17 21:00 12/24/17 20:59 Cyclobenzaprine HCl (Flexeril) 10 mg TIDPRN PRN ORAL Muscle Spasm 11/24/17 17:45 12/24/17 17:44 Heparin Sodium (Porcine) (Heparin 5000 units/ml) 5,000 units EVERY 12 HOURS SUBQ 11/24/17 22:00 12/24/17 21:59 Ibuprofen (Motrin) 600 mg THREE TIMES A DAY ORAL 11/24/17 19:00 12/24/17 18:59 Ondansetron HCl (Zofran) 4 mg Q6H PRN ORAL Nausea & Vomiting 11/24/17 17:45 12/24/17 17:44 Oseltamivir Phosphate (Tamiflu) 75 mg BID ORAL 11/25/17 11:00 11/29/17 18:01 11/25/17 10:46 Patient Own Medication (Patient's Own Med) 1 ea BID@1000,2200 ORAL 11/24/17 22:00 12/24/17 21:59 11/24/17 22:27 Patient Own Medication (Patient's Own Med) 1 ea BID@1000,2200 ORAL 11/24/17 22:00 12/24/17 21:59 1/1/18 22:28 Patient Own Medication (Patient's Own Med) 1 ea BID@1000,2200 ORAL 11/24/17 22:00 12/24/17 21:59 11/24/17 22:30 Prednisone (predniSONE) 40 mg DAILY ORAL 11/25/17 09:00 12/25/17 08:59 11/25/17 08:05 Assessment/Plan Assessment/Plan Abx: Amoxicillin 11/24- (started 11/22) Tamiflu 11/25- Assessment: URI/bronchitis 2ry to Influenza A- ?bactetrial superinfection- no PNA; improving -CXR: Low grade fever x1 nO leukocytosis HIV- well controlled CD4 800 and VL UD per patient CVA, seizure disorder Plan: -Continue Amoxicillin #4/5 and Tamiflu #2/5; ok to discharge on this regimen. Rx left in chart. -Continue HIV meds: Raltegravir, Darunavir, Norvir -f/u cx -Monitor CBC/BMP, temperatures -supportive care -Aspiration precautions Thank you for this consultation. Will continue to follow along with you. Discussed with VICKIE. Ayanna Price M.D. Nov 25, 2017 12:54
[2017-11-25] MEDS ORDERED: TAMIFLU45 MG ORAL (14:30)
[2017-11-25] MEDS ORDERED: Isentress 400mg tab ORAL SCH (15:30)
[2017-11-25] MEDS ORDERED: Darunavir 600mg tab ORAL SCH (15:30)
--- NOTE | 2017-11-25 17:08 | Cardiology Report ---
APPROVED REPORT EKG Measurement Heart [id number] Normal sinus rhythm Normal ECG
--- NOTE | 2017-11-25 20:01 | History & Physical ---
History and Physical History & Physicial [id number] Job ID Jackson Palomares Kimberly Nov 25, 2017 20:01
--- NOTE | 2017-11-26 03:45 | History and Physical Report ---
DATE OF ADMISSION: 11/24/2017 REASON FOR ADMISSION: Productive cough and body aches. IDENTIFYING INFORMATION: The patient is a pleasant 52-year-old female with a past medical history significant for CVA, HIV, viral load undetectable, CD4 count of 800, at this time presents to the ER with shortness of breath and pain total body. In the ER, he received approximately amoxicillin and prednisone and continues to have total body pain and worsening shortness of breath. In the ER, noted to have an elevated temperature of 100.6 degrees Fahrenheit and tachycardia. Apparently, the patient is feeling better today with a potential to be discharged. PAST MEDICAL HISTORY: As noted above. MEDICATIONS: As reviewed in the EMR. ALLERGIES: Shellfish. FAMILY HISTORY: Noncontributory. REVIEW OF SYSTEMS: A 12-point review of systems is otherwise negative. PHYSICAL EXAMINATION: GENERAL: No acute distress. VITAL SIGNS: Reviewed. PULMONARY: Decreased breath sounds. CARDIOVASCULAR: Regular rate. No S3 or S4. ABDOMEN: Soft, nontender, and nondistended. EXTREMITIES: A 1+ edema. LABORATORY DATA: Reviewed, completely normal besides decreased calcium count. ASSESSMENT AND RECOMMENDATIONS: 1. Shortness of breath and productive cough secondary to underlying bronchitis secondary to influenza A. No pneumonia noted. The patient is improving. Chest x-ray better. Therefore, the patient is stable for discharge. 2. HIV, currently better controlled with ID service. CD4 count of 800, viral load undetectable. 3. Seizure history in the past, improved. 4. related to decreased albumin. 5. Continue to closely follow in the outpatient setting. The patient is stable for discharge. Jackson Palomares M.D. DR: JAMEL JOB#: [id number] CC:
--- NOTE | 2017-11-27 08:56 | Discharge Summary ---
Discharge Summary Hospital Course Date of Admission Nov 24, 2017 at 12:33 Date of Discharge Nov 25, 2017 at 14:55 Admitting Diagnosis pneumonia, immunocompromised pt. HPI Marylou Collins is a 52 year old female who was admitted on Nov 24, 2017 at 12: 33 for Pneumonia,Immunocompromised Patient Hospital Course [id number] Discharge Discharge Disposition Patient was discharged to Home (01) Discharge Diagnoses: Criselda Gallardo BITUMASTIC APPLIER Nov 27, 2017 08:56
--- NOTE | 2017-11-28 01:00 | Discharge Summary 2 SIG ---
DATE OF ADMISSION: 11/24/2017 DATE OF DISCHARGE: 11/25/2017 CAR RENTAL AGENT: Ayanna Price M.D. BRIEF HOSPITAL COURSE: The patient is a 52-year-old female with past medical history significant for CVA and HIV with viral load undetectable and CD4 count of 800, presented to the ER complaining of shortness of breath and generalized body pain. She was seen three days prior at ED and was discharged home on prednisone and amoxicillin. She continued to have body pain and worsening shortness of breath. She presented to ED, where on evaluation, she was noted to have fever, temperature of 100.6 and was tachycardic to 114 and mildly toxic in appearance. She was seen by Infectious Disease specialist. She was started on Tamiflu. Influenza screen was positive for influenza A. She was resumed on HIV medications, raltegravir, darunavir, and Norvir. She was then cleared for discharge and the patient was discharged home. Continue Tamiflu twice a day. FINAL DIAGNOSES: 1. Shortness of breath and productive cough secondary to underlying bronchitis secondary to influenza A. 2. Human immunodeficiency virus. 3. History of seizure disorder. DISPOSITION: The patient was discharged home. DISCHARGE MEDICATIONS: Refer to medication list. Continue with Tamiflu b.i.d. x7 days. DISCHARGE INSTRUCTIONS: Follow up with PMD as outpatient. Jackson Palomares M.D. I have been assigned to dictate discharge summary on this account and I was not involved in the patient's management. Criselda Gallardo N.P. DR: BRENDON JOB#: [id number] CC:
== END 2017-11-25 14:55 | disposition home or self-care (01) | DRG 113 ==
LOC: EMR 12:23 → 4E 12:33 → EDBEDREQ 14:44 → 4E 17:03
DX: J10.1 Influenza due to other identified influenza virus with other respiratory manifestations (principal); B20 Human immunodeficiency virus [HIV] disease; G40.909 Epilepsy, unspecified, not intractable, without status epilepticus; R00.0 Tachycardia, unspecified; Z86.73 Personal history of transient ischemic attack (TIA), and cerebral infarction without residual deficits
CPT/HCPCS: 36415; 71045; 80048; 80053; 81003; 82550; 83605; 84484; 85007; 85025; 86710; 87040; 93005; 94640; 94664; 99285; J7620; J8499

== ENCOUNTER 2017-12-03 18:27 | Emergency (ER) | payer OTHER ==
[~2017-12-03] VITALS: Ht 154.9 cm; Wt 79.4 kg
[~2017-12-03 18:27] MED LIST changes: +TAMIFLU45 MG ORAL
[2017-12-03 19:15] VITALS: BP 120/82
--- NOTE | 2017-12-03 19:42 | Emergency Room Report ---
History of Present Illness General Chief Complaint: General Complaint Present Illness HPI 52-year-old female presents to the emergency department complaining of continued symptoms of nasal congestion, rhinorrhea, cough, wheezing, chest tightness in addition to new onset intermittent episodes of vertigo. Patient denies nausea or vomiting. Patient was recently admitted here in [place] and tested positive for influenza. Patient was discharged days ago. Patient has history of HIV. Patient reports subjective fevers and chills. She states she has been having to use her albuterol inhaler more often than normal. Denies Palpitations, LOC, AMS, dizziness, Changes in Vision, Sensation, paresthesias, or a sudden severe headache. Denies weakness in the extremities or unilateral neurological symptoms. denies claudication or hx of DVT. She denies tinnitus or ear pain.During history of present illness patient mentioned several times that she is "worried" which is why she came. She denies history of excessive worry/generalized anxiety. Pt reports follow up appt with PMD on Friday. Allergies: Coded Allergies: SHELLFISH DERIVED (Unverified Allergy, Unknown, 07/26/16) Uncoded Allergies: SHELLFISH (Allergy, Unknown, 07/26/16) Patient History Past Medical History: see triage record, HIV Past Surgical History: none Pertinent Family History: none Now: No Immunizations: UTD Reviewed Nursing Documentation: PMH: Agreed, PSxH: Agreed Nursing Documentation-PMH Hx Cardiac Problems: Yes Hx Cancer: No Hx Gastrointestinal Problems: No Hx Neurological Problems: No Hx Cerebrovascular Accident: Yes Hx Seizures: Yes - Last one 25 yrs ago Hx Headaches: Yes Hx Weakness: Yes Review of Systems All Other Systems: negative except mentioned in HPI Physical Exam Vital Signs Date Time Temp Pulse Resp B/P (MAP) Pulse Ox O2 Delivery O2 Flow Rate FiO2 12/03/17 18:38 99.0 102 20 120/82 98 Room Air Sp02 EP Interpretation: reviewed, normal General Appearance: no apparent distress, alert, GCS 15, non-toxic Head: normocephalic, atraumatic Eyes: bilateral eye normal inspection ENT: hearing grossly normal, normal voice Neck: full range of motion Respiratory: chest non-tender, lungs clear, normal breath sounds, no respiratory distress, no wheezing, speaking full sentences Cardiovascular #1: regular rate, rhythm, no edema, normal capillary refill Musculoskeletal: back normal, gait/station normal, normal range of motion, non- tender Neurologic: alert, oriented x3, responsive, motor strength/tone normal, sensory intact, normal gait, speech normal, other - NO nystagmus, vertigo is not illicited durring ED visit. , grossly normal Psychiatric: judgement/insight normal Skin: normal color, no rash, warm/dry, well hydrated Medical Decision Making PA Attestation Dr. simon is my supervising Physician whom patient management has been discussed with. Diagnostic Impression: Primary Impression: Vertigo Additional Impression: Influenza ER Course 52-year-old female presents to the emergency department complaining of continued symptoms of nasal congestion, rhinorrhea, cough, wheezing, chest tightness in addition to new onset intermittent episodes of vertigo. Patient denies nausea or vomiting. Patient was recently admitted here in [place] and tested positive for influenza. Patient was discharged days ago. Patient has history of HIV. Patient reports subjective fevers and chills. She states she has been having to use her albuterol inhaler more often than normal. Denies Palpitations, LOC, AMS, dizziness, Changes in Vision, Sensation, paresthesias, or a sudden severe headache. Denies weakness in the extremities or unilateral neurological symptoms. denies claudication or hx of DVT. She denies tinnitus or ear pain.During history of present illness patient mentioned several times that she is "worried" which is why she came. She denies history of excessive worry/generalized anxiety. Pt reports follow up appt with PMD on Friday. Ddx considered but are not limited to Mnire's, BPPV, labrinitis, cerebellar stroke, hypovolemia, cardiac cause, influenza, pneumonia just to name a few. -I reviewed this patient's previous admission records and noted that she had positive influenza A&B antigen.She did not have evidence of pneumonia or sepsis. Negative Troponin. She was evaluated by director of global sales and melter supervisor oxygen furnace. Vital signs: are WNL, pt. is afebrile, H&PE are most consistent with Viral syndrome and intermittent peripheral vertigo most likely due to current URI with nasal congestion. no Neurological signs, and nystagmus is not elicited upon [place]pike. Patient is nontoxic in appearance, in no acute distress, no evidence of tachypnea or respiratory distress. Lungs are clear to auscultation bilaterally. ORDERS: -Meclizine PO ED INTERVENTIONS: -Patient is given reassurance for her upper respiratory symptoms. Discussed with patient that if she has worsening of her current symptoms to return to the emergency department. Discussed with patient that she needs to finish antiviral medication Tamiflu. --I do not identify an emergent condition at this time. With current presentation, pt. is stable for close outpatient follow up and conservative treatment. D/w pt. to return promptly to ED with worsening or new symptoms.- Pt. (and or responsible green party) verbalizes' understanding and agreement with proposed treatment plan.proposed treatment plan. DISCHARGE: At this time pt. is stable for d/c to home. Will provide printed patient care instructions, and any necessary prescriptions. Care plan and follow up instructions have been discussed with the patient prior to discharge. Last Vital Signs Date Time Temp Pulse Resp B/P (MAP) Pulse Ox O2 Delivery O2 Flow Rate FiO2 12/03/17 19:15 99.0 102 20 120/82 98 Room Air Disposition: HOME, SELF-CARE Condition: Stable Scripts Nebulizer (MINI PLUS NEBULIZER) 1 Each Each EACH , #1 Prov: Janene Gilliam.A. 12/03/17 Albuterol Sulfate* (ALBUTEROL SULFATE HHN*) 2.5 Mg/3 Ml Vial.neb 3 ML INH Q6H Y for Shortness of Breath, #30 EA 0 Refills Prov: Janene Gilliam.A. 12/03/17 Acetaminophen* (TYLENOL EXTRA STRENGTH*) 500 Mg Tablet 500 MG ORAL Q6H, #20 TAB 0 Refills Prov: Janene Gilliam 12/03/17 Meclizine Hcl* (VERTICALM*) 25 Mg Tablet 25 MG ORAL THREE TIMES A DAY for 5 Days, #15 TAB Prov: Janene Gilliam.A. 12/03/17 Patient Instructions: Influenza, Adult, Vertigo, [id number] Additional Instructions: Take medications as directed. Follow up with a Primary Care Provider in 3-5 days, even if your symptoms have resolved. --Please review list of primary care clinics, if you do not already have a primary care provider Return sooner to ED if new symptoms occur, or current symptoms become worse. Do not drink alcohol, drive, or operate heavy machinery while taking Meclizine/ Anti-Vert as this may cause drowsiness. - Please note that this Emergency Department Report was dictated using [employer] Innovations[employer] professor technology software, occasionally this can lead to erroneous entry secondary to interpretation by the dictation equipment. Janene Gilliam Dec 03, 2017 19:42
[2017-12-03] MEDS ORDERED: MINI PLUS NEBU1 EACH MC (19:45)
[2017-12-03] MEDS ORDERED: Meclizine 25mg tab ORAL PRN (19:45)
[2017-12-03] MEDS ORDERED: ALBUTEROL2.5 MG/3 M INH (19:45)
[2017-12-03] MEDS ORDERED: TYLENOL EXTRA500 MG ORAL (19:45)
[2017-12-03] MEDS ORDERED: VERTICALM25 MG ORAL (19:45)
[2017-12-03 19:53] VITALS: BP 122/75
== END 2017-12-03 20:10 | disposition home or self-care (01) ==
LOC: EMR 20:02
DX: R42 Dizziness and giddiness (principal); J11.1 Influenza due to unidentified influenza virus with other respiratory manifestations; Z91.013 Allergy to seafood; Z86.73 Personal history of transient ischemic attack (TIA), and cerebral infarction without residual deficits
CPT/HCPCS: 99283

== ENCOUNTER 2018-02-01 10:10 | Emergency (ER) | payer OTHER ==
[~2018-02-01] VITALS: Ht 154.9 cm; Wt 79.4 kg
[~2018-02-01 10:10] MED LIST changes: +ALBUTEROL2.5 MG/3 M INH; +MINI PLUS NEBU1 EACH MC; +TYLENOL EXTRA500 MG ORAL; +VERTICALM25 MG ORAL
[2018-02-01] MEDS ORDERED: Sodium Chloride 500ML 550 ML IV SCH (11:15)
[2018-02-01] MEDS ORDERED: Ketorolac 30mg Inj IV ONE (11:15)
[2018-02-01 11:43] LABS: BASOPHILS % (AUTO) 0.8 % (0.0-2.0); EOSINOPHILS % (AUTO) 2.2 % (0.0-3.0); HEMATOCRIT 40.8 % (37.0-47.0); HEMOGLOBIN 13.4 G/DL (12.0-16.0); LYMPHOCYTES % (AUTO) 40.5 % (20.0-45.0); MEAN CORPUSCULAR VOLUME 88 FL (80-99); MONOCYTES % (AUTO) 4.7 % (1.0-10.0); NEUTROPHILS % (AUTO) 51.9 % (45.0-75.0); PLATELET COUNT 225 K/UL (150-450); RED BLOOD COUNT 4.65 M/UL (4.20-5.40); RED CELL DISTRIBUTION WIDTH 12.1 % (11.6-14.8); WHITE BLOOD COUNT 6.3 K/UL (4.8-10.8)
[2018-02-01 11:47] LABS: ANION GAP 10 mmol/L (5-15); BLOOD UREA NITROGEN 15 mg/dL (7-18); CALCIUM 9.4 MG/DL (8.5-10.1); CARBON DIOXIDE 26 MMOL/L (21-32); CHLORIDE 103 MMOL/L (98-107); CREATININE 0.8 MG/DL (0.55-1.30); INR 1.1 (0.9-1.1); POTASSIUM 3.3 MMOL/L (3.5-5.1); SODIUM 139 MMOL/L (136-145)
[2018-02-01 11:51] VITALS: BP 103/70
[2018-02-01 11:52] LABS: ALANINE AMINOTRANSFERASE 20 U/L (12-78); ALBUMIN 3.7 G/DL (3.4-5.0); ALBUMIN/GLOBULIN RATIO 0.9 (1.0-2.7); ALKALINE PHOSPHATASE 137 U/L (46-116); ASPARTATE AMINO TRANSFERASE 20 U/L (15-37); BILIRUBIN,TOTAL 0.2 MG/DL (0.2-1.0); CREATINE KINASE 174 U/L (26-308)
--- NOTE | 2018-02-01 11:53 | Diagnostic Imaging Report ---
Indication: Chest pain Technique: XRAY Chest 1v Comparison: 11/24/2017 Findings: The cardiomediastinal silhouette is within normal limits. There is no focal consolidation, pneumothorax or pleural effusion. Osseous structures demonstrate no acute abnormality. Impression: No acute cardiopulmonary disease.
[2018-02-01 12:01] LABS: APPEARANCE,URINE CLEAR; BILIRUBIN, URINE NEGATIVE (NEGATIVE); COLOR,URINE PALE YELLOW; GLUCOSE, URINE (UA) NEGATIVE (NEGATIVE); KETONES,URINE NEGATIVE (NEGATIVE); LEUKOCYTE ESTERASE ,URINE 1+ (NEGATIVE); NITRITE,URINE NEGATIVE (NEGATIVE); PH,URINE 6 (4.5-8.0); PROTEIN,URINE NEGATIVE (NEGATIVE); UROBILINOGEN,URINE NORMAL MG/DL (0.0-1.0)
--- NOTE | 2018-02-01 14:10 | Emergency Room Report ---
History of Present Illness General Chief Complaint: Pain Source: Patient Present Illness HPI Patient drove self here with R knee pain. Has been more severe for last 2 days with difficulty ambulating and also swelling. No trauma. Has also had L shoulder pain which radiates to L arm. Seen by big data solutions architect and given Rx for gabapentin which she did not fill. She has taken Motrin 600 mg BID with some improvement of pain but swelling persisted. Concerned as significant other just 3 weeks ago from breast cancer and had lymphedema. H/O HIV and has been stable on antivirals. Followed closely for this. Has felt feverish but not documented. Profoundly affected by sig other's . Depressed, but not suicidal. No support with grieving process. Stress. No chest pain, dyspnea, NVD, dysuria, numbness, weakness. Allergies: Coded Allergies: SHELLFISH DERIVED (Unverified Allergy, Unknown, 07/26/16) Uncoded Allergies: SHELLFISH (Allergy, Unknown, 07/26/16) Patient History Past Medical History: see triage record Social History: Denies: smoking Social History Narrative Raising children of sig other Last Menstrual Period: 6 months Reviewed Nursing Documentation: PMH: Agreed, PSxH: Agreed Nursing Documentation-PMH Hx Cardiac Problems: Yes Hx Cancer: No Hx Gastrointestinal Problems: No Hx Neurological Problems: No Hx Cerebrovascular Accident: Yes Hx Seizures: Yes - Last one 25 yrs ago Hx Headaches: Yes Hx Weakness: Yes Review of Systems All Other Systems: negative except mentioned in HPI Physical Exam Vital Signs Date Time Temp Pulse Resp B/P (MAP) Pulse Ox O2 Delivery O2 Flow Rate FiO2 02/01/18 10:14 98.5 109 16 124/75 95 Room Air 98.4 Sp02 EP Interpretation: reviewed, normal General Appearance: well appearing, no apparent distress, GCS 15 Head: normocephalic Eyes: bilateral eye normal inspection, bilateral eye PERRL ENT: moist mucus membranes Neck: supple Respiratory: lungs clear, normal breath sounds Cardiovascular #1: regular rate, rhythm Cardiovascular #2: 2+ radial (R) Gastrointestinal: normal inspection, normal bowel sounds, non tender, no mass, non-distended Musculoskeletal: back normal, gait/station normal, normal range of motion, swelling - L knee with effusion, no warmth. Ligaments stable, other - L shoulde with FROM Neurologic: alert, oriented x3, grossly normal Psychiatric: depressed affect - tearful Skin: normal inspection, warm/dry, other - no erythema of L knee Medical Decision Making Diagnostic Impression: Primary Impression: Left knee pain Qualified Codes: M25.562 - Pain in left knee Additional Impressions: Osteoarthritis Qualified Codes: M17.11 - Unilateral primary osteoarthritis, right knee Grief ER Course Patient presents with L knee swelling and reaction to of significant other. DDx: gout, pseudogout, osteoarthritis, septic joint amongst others. Significant grief reaction with increased anxiety about possible cancer related issues. Slightly higher risk with h/o HIV. Evaluation with EKG, CXR, labs including uric acid. Treatment with IV toradol,. Labs with normal WBC, normal uric acid. Knee films with osteoarthritis. CXR normal. EKG without injury. Improved with toradol. Clinically, no evidence of septic joint. Cannot exclude pseudogout, though monoarthritis makes less likely. Bon applied by me - position excellent and distal neurovasc normal. Discussed treatment with NSAIDs and need for repeat evaluation by MDs including big data solutions architect. Discussion regarding grieving process and seeking help with this. Patient stable for outpatient observation and treatment. Laboratory Tests Test 02/01/18 11:15 02/01/18 11:40 White Blood Count 6.3 K/UL (4.8-10.8) Red Blood Count 4.65 M/UL (4.20-5.40) Hemoglobin 13.4 G/DL (12.0-16.0) Hematocrit 40.8 % (37.0-47.0) Mean Corpuscular Volume 88 FL (80-99) Mean Corpuscular Hemoglobin 28.9 PG (27.0-31.0) Mean Corpuscular Hemoglobin Concent 32.9 G/DL (32.0-36.0) Red Cell Distribution Width 12.1 % (11.6-14.8) Platelet Count 225 K/UL (150-450) Mean Platelet Volume 8.0 FL (6.5-10.1) Neutrophils (%) (Auto) 51.9 % (45.0-75.0) Lymphocytes (%) (Auto) 40.5 % (20.0-45.0) Monocytes (%) (Auto) 4.7 % (1.0-10.0) Eosinophils (%) (Auto) 2.2 % (0.0-3.0) Basophils (%) (Auto) 0.8 % (0.0-2.0) Erythrocyte Sedimentation Rate 22 MM/HR (0-30) Prothrombin Time 11.4 SEC (9.30-11.50) Prothrombin Time INR 1.1 (0.9-1.1) PTT 26 SEC (23-33) Sodium Level 139 MMOL/L (136-145) Potassium Level 3.3 MMOL/L (3.5-5.1) L Chloride Level 103 MMOL/L (98-107) Carbon Dioxide Level 26 MMOL/L (21-32) Anion Gap 10 mmol/L (5-15) Blood Urea Nitrogen 15 mg/dL (7-18) Creatinine 0.8 MG/DL (0.55-1.30) Estimate Glomerular Filtration Rate > 60 mL/min (>60) Glucose Level 141 MG/DL (74-106) H Uric Acid 4.2 MG/DL (2.6-7.2) Calcium Level 9.4 MG/DL (8.5-10.1) Total Bilirubin 0.2 MG/DL (0.2-1.0) Aspartate Amino Transferase (AST) 20 U/L (15-37) Alanine Aminotransferase (ALT) 20 U/L (12-78) Alkaline Phosphatase 137 U/L (46-116) H Total Creatine Kinase 174 U/L (26-308) Troponin I 0.000 ng/mL (0.000-0.056) Total Protein 7.8 G/DL (6.4-8.2) Albumin 3.7 G/DL (3.4-5.0) Globulin 4.1 g/dL Albumin/Globulin Ratio 0.9 (1.0-2.7) L Urine Color Pale yellow Urine Appearance Clear Urine pH 6 (4.5-8.0) Urine Specific [place] 1.015 (1.005-1.035) Urine Protein Negative (NEGATIVE) Urine Glucose (UA) Negative (NEGATIVE) Urine Ketones Negative (NEGATIVE) Urine Occult Blood 2+ (NEGATIVE) H Urine Nitrite Negative (NEGATIVE) Urine Bilirubin Negative (NEGATIVE) Urine Urobilinogen Normal MG/DL (0.0-1.0) Urine Leukocyte Esterase 1+ (NEGATIVE) H Urine RBC 0-2 /HPF (0 - 2) Urine WBC 0-2 /HPF (0 - 2) Urine Squamous Epithelial Cells Moderate /LPF (NONE/OCC) H Urine Bacteria Few /HPF (NONE) Urine HCG, Qualitative Negative Urine Opiates Screen Negative (NEGATIVE) Urine Barbiturates Screen Negative (NEGATIVE) Phencyclidine (PCP) Screen Negative (NEGATIVE) Urine Amphetamines Screen Negative (NEGATIVE) Urine Benzodiazepines Screen Negative (NEGATIVE) Urine Cocaine Screen Negative (NEGATIVE) Urine Marijuana (THC) Screen Negative (NEGATIVE) EKG Diagnostic Results Rate: normal Rhythm: NSR ST Segments: no acute changes Rhythm Strip Diag. Results EP Interpretation: yes Rhythm: NSR, no PVC's, no ectopy Chest X-Ray Diagnostic Results Chest X-Ray Diagnostic Results : Chest X-Ray Ordered: Yes # of Views/Limited/Complete: 1 View Indication: Other EP Interpretation: Yes Interpretation: no consolidation, no effusion, no pneumothorax Impression: No acute disease Electronically Signed by: Billy Aguayo MD Other X-Ray Diagnostic Results Other X-Ray Diagnostic Results : X-Ray ordered: L knee # of Views/Limited Vs Complete: 3 View Indication: Pain Interpretation: no dislocation, no soft tissue swelling, no fractures, other - small effusion and osteophytes Impression: Other Electronically Signed by: Billy Aguayo MD Last Vital Signs Date Time Temp Pulse Resp B/P (MAP) Pulse Ox O2 Delivery O2 Flow Rate FiO2 02/01/18 14:53 97.8 79 20 121/83 98 Room Air 98.7 Status: improved Disposition: HOME, SELF-CARE Condition: Improved Scripts Acetaminophen (Tylenol) 325 Mg Tablet 650 MG ORAL Q6H Y for Prn Pain/Headache/Temp > 101, #30 TAB 0 Refills Prov: Billy Aguayo M.D. 02/01/18 Referrals: [facility],REFERR[facility] (PCP) Billy Aguayo M.D. Feb 01, 2018 14:10
[2018-02-01] MEDS ORDERED: TYLENOL325 MG ORAL (14:41)
[2018-02-01 14:53] VITALS: BP 121/83
--- NOTE | 2018-02-02 10:41 | Diagnostic Imaging Report ---
Indication: Reason For Exam: PAIN Technique: 3 views of the left knee Comparison: None Findings: No suprapatellar effusion. No acute fractures. No dislocations. There is a small superior pole patellar osteophyte. Joint spaces are preserved Impression: No acute process
--- NOTE | 2018-02-05 21:36 | Cardiology Report ---
APPROVED REPORT EKG Measurement Heart [id number] Normal sinus rhythm Normal ECG
== END 2018-02-01 14:53 | disposition home or self-care (01) ==
LOC: EMR 10:35
DX: M25.562 Pain in left knee (principal); M17.11 Unilateral primary osteoarthritis, right knee; F43.20 Adjustment disorder, unspecified; Z86.73 Personal history of transient ischemic attack (TIA), and cerebral infarction without residual deficits; R07.9 Chest pain, unspecified
CPT/HCPCS: 36415; 71045; 73562; 80053; 80307; 81003; 81025; 82550; 84484; 84550; 85025; 85610; 85651; 85730; 93005; 96374; 96375; 99284; J1885; J7040

== ENCOUNTER 2018-02-23 11:44 | Emergency (ER) | payer OTHER ==
[~2018-02-23] VITALS: Ht 157.5 cm; Wt 81.6 kg
[~2018-02-23 11:44] MED LIST changes: +TYLENOL325 MG ORAL
[2018-02-23] MEDS ORDERED: Albuterol/Ipratropium 3ml neb HHN ONE (12:15)
[2018-02-23] MEDS ORDERED: Lidocaine 2% Visc 15ml soln ORAL ONE (12:30)
[2018-02-23] MEDS ORDERED: Dexamethasone 4mg/ml vial IM ONE (12:30)
[2018-02-23 13:25] VITALS: BP 111/74
--- NOTE | 2018-02-23 13:28 | Emergency Room Report ---
History of Present Illness General Chief Complaint: Flu Like Symptoms Present Illness HPI 52-year-old female presents to the emergency department complaining of 8 out of 10 in severity sore throat, cough, nasal congestion and sinus headache 5 days. Patient reports history of HIV she states her CD4 count is 824 and her viral load is undetectable her most recent lab work was resulted yesterday. She denies fevers, chills, neck pain or stiffness, photophobia or sudden onset headache. She denies purulent nasal discharge or facial tenderness. Patient reports recent URI in November and history of bronchitis she states she does not have an inhaler at home. Denies CP, Palpitations, LOC, AMS, dizziness, Changes in Vision, Sensation, paresthesias, or a sudden severe headache. Allergies: Coded Allergies: SHELLFISH DERIVED (Unverified Allergy, Unknown, 07/26/16) Uncoded Allergies: SHELLFISH (Allergy, Unknown, 07/26/16) Patient History Past Medical History: see triage record Past Surgical History: none Pertinent Family History: none Now: No Immunizations: UTD Reviewed Nursing Documentation: PMH: Agreed; PSxH: Agreed Nursing Documentation-PMH Hx Cardiac Problems: Yes Hx Cancer: No Hx Gastrointestinal Problems: No Hx Neurological Problems: No Hx Cerebrovascular Accident: Yes Hx Seizures: Yes - Last one 25 yrs ago Hx Headaches: Yes Hx Weakness: Yes Review of Systems All Other Systems: negative except mentioned in HPI Physical Exam Vital Signs Date Time Temp Pulse Resp B/P (MAP) Pulse Ox O2 Delivery O2 Flow Rate FiO2 02/23/18 11:50 98.1 104 20 97/60 96 Room Air 98.1 Sp02 EP Interpretation: reviewed, normal General Appearance: no apparent distress, alert, GCS 15, non-toxic Head: normocephalic, atraumatic ENT: hearing grossly normal, normal voice, TMs + canals normal, moist mucus membranes, pharyngeal erythema - cobble stone appearance, no exudates. Neck: full range of motion, no meningismus, no bony tend Respiratory: chest non-tender, lungs clear, normal breath sounds, no rhonchi, no accessory muscle use, speaking full sentences, wheezing - scant in the upper airways Cardiovascular #1: regular rate, rhythm, no edema, normal capillary refill, tachycardia Musculoskeletal: back normal, gait/station normal, normal range of motion, non- tender Neurologic: alert, oriented x3, responsive, motor strength/tone normal, sensory intact, speech normal, grossly normal Psychiatric: judgement/insight normal Skin: normal color, no rash, warm/dry, well hydrated Lymphatic: no adenopathy Medical Decision Making PA Attestation Dr. simon is my supervising Physician whom patient management has been discussed with. Diagnostic Impression: Primary Impression: Bronchitis Additional Impression: Acute viral pharyngitis ER Course 52-year-old female presents to the emergency department complaining of 8 out of 10 in severity sore throat, cough, nasal congestion and sinus headache 5 days. Patient reports history of HIV she states her CD4 count is 824 and her viral load is undetectable her most recent lab work was resulted yesterday. She denies fevers, chills, neck pain or stiffness, photophobia or sudden onset headache. She denies purulent nasal discharge or facial tenderness. Patient reports recent URI in November and history of bronchitis she states she does not have an inhaler at home. Denies CP, Palpitations, LOC, AMS, dizziness, Changes in Vision, Sensation, paresthesias, or a sudden severe headache. Ddx considered but are not limited to URI, pneumonia, PE, strep pharyngitis, meningitis. Vital signs: Pt.is afebrile VS are WNL H&PE are most consistent with bronchitis- viral in etiology with PND associated ST. no evidence of bacterial infection at this time. ORDERS: none required at this time, the diagnosis is clinical ED INTERVENTIONS: -DuoNebs HHN - Decadron 8mg -Viscous Lidocaine PO DISCHARGE: At this time pt. is stable for d/c to home. Will provide printed patient care instructions, and any necessary prescriptions. Care plan and follow up instructions have been discussed with the patient prior to discharge. Chest X-Ray Diagnostic Results Chest X-Ray Diagnostic Results : Chest X-Ray Ordered: Yes Indication: Shortness of Breath EP Interpretation: Yes ANNA Xray: Interpretation reviewed, by supervising MD, and agrees with findings. Interpretation: no consolidation, no effusion, no pneumothorax, no acute cardiopulmonary disease Impression: No acute disease Electronically Signed by: Janene Gilliam PA-C Last Vital Signs Date Time Temp Pulse Resp B/P (MAP) Pulse Ox O2 Delivery O2 Flow Rate FiO2 02/23/18 12:51 99 18 99 Room Air 02/23/18 11:50 98.1 97/60 98.1 Disposition: HOME, SELF-CARE Condition: Stable Scripts Albuterol Sulfate* (ALBUTEROL SULFATE MDI*) 8.5 Gm Hfa.aer.ad 2 PUFF INH Q3H, #1 INH 2 Refills Prov: Janene Gilliam 02/23/18 Guaifenesin (Guaifenesin) 1,200 Mg Tab.er.12h 1200 MG PO BID, #20 TAB Prov: Janene Gilliam 02/23/18 Oxymetazoline Hcl* (AFRIN*) 15 Ml Mist 2 SPRAYS NASAL TWICE A DAY for 3 Days, #15 ML 0 Refills DO NOT USE FOR MORE THAN 3 CONSECUTIVE DAYS. Prov: Janene Gilliam 02/23/18 Lidocaine HCl 2% Viscous (Lidocaine HCl 2% Viscous) 100 Ml Solution 15 ML ORAL QID for pain, #100 ML Prov: Janene Gilliam 02/23/18 Codeine/Promethazine Hcl* (PROMETHAZINE-CODEINE SYRUP*) 118 Ml Syrup 5 ML ORAL Q6H PRN for For Cough, #120 ML 0 Refills Prov: Janene Gilliam 02/23/18 Referrals: [facility],REFERRING (PCP) Patient Instructions: Acute Bronchitis, Pharyngitis, [id number] Additional Instructions: Take medications as directed. Follow up with a Primary Care Provider in 3-5 days, even if your symptoms have resolved. --Please review list of primary care clinics, if you do not already have a primary care provider Return sooner to ED if new symptoms occur, or current symptoms become worse. Do not drink alcohol, drive, or operate heavy machinery while taking Cough Syrup as this may cause drowsiness. - Please note that this Emergency Department Report was dictated using Litherajboss architect technology software, occasionally this can lead to erroneous entry secondary to interpretation by the dictation equipment. Janene Gilliam Feb 23, 2018 13:28
[2018-02-23] MEDS ORDERED: GUAIFENESIN1200 MG PO (13:31)
[2018-02-23] MEDS ORDERED: AFRIN15 ML NASAL (13:31)
[2018-02-23] MEDS ORDERED: PROMETHAZINE-C118 M1 ORAL (13:31)
[2018-02-23] MEDS ORDERED: LIDOCAINE VISC100 ML ORAL (13:31)
[2018-02-23] MEDS ORDERED: ALBUTEROL SULF8.5 GM INH (13:31)
[2018-02-23 13:35] VITALS: BP 111/74
--- NOTE | 2018-02-23 16:08 | Diagnostic Imaging Report ---
Indication: Chest pain Technique: One view of the chest Comparison: 02/01/2018 Findings: Lungs and pleural spaces are clear. Heart size is normal . No significant change Impression: No acute process
== END 2018-02-23 13:39 | disposition home or self-care (01) ==
LOC: EMR 12:30
DX: J40 Bronchitis, not specified as acute or chronic (principal); J02.8 Acute pharyngitis due to other specified organisms; B97.89 Other viral agents as the cause of diseases classified elsewhere; Z91.013 Allergy to seafood; Z86.73 Personal history of transient ischemic attack (TIA), and cerebral infarction without residual deficits
CPT/HCPCS: 71045; 94640; 94664; 96372; 99284; J1100; J7620

== ENCOUNTER 2018-05-07 04:36 | Emergency (ER) | payer OTHER ==
[~2018-05-07] VITALS: Ht 154.9 cm; Wt 81.6 kg
[~2018-05-07 04:36] MED LIST changes: +AFRIN15 ML NASAL; +GUAIFENESIN1200 MG PO; +LIDOCAINE VISC100 ML ORAL; +PROMETHAZINE-C118 M1 ORAL
[2018-05-07 05:03] VITALS: BP 147/86
[2018-05-07] MEDS ORDERED: PERMETHRIN60 GM TOPIC (05:22)
--- NOTE | 2018-05-07 05:23 | Emergency Room Report ---
History of Present Illness General Chief Complaint: Skin Rash/Abscess Source: Patient Present Illness HPI This is a 52-year-old female with history of HIV with normal CD4 count and undetectable viral load. She presents with itching to her skin. She said that she was helping a friend who is homeless. He was being admitted to the ICU at [facility]. She went to his trailer to find his ID. He has scabies and a week later she started itching. She has similar problem last year. She denies any fever or chills. Itchy mostly in the forearm. No other complaint. No nausea no vomiting no diarrhea. Allergies: Coded Allergies: SHELLFISH DERIVED (Unverified Allergy, Unknown, 07/26/16) Uncoded Allergies: SHELLFISH (Allergy, Unknown, 07/26/16) Patient History Past Medical History: see triage record, old chart reviewed Past Surgical History: none Pertinent Family History: none Social History: Denies: smoking Now: No Immunizations: other Reviewed Nursing Documentation: PMH: Agreed; PSxH: Agreed Nursing Documentation-PMH Hx Cardiac Problems: Yes Hx Cancer: No Hx Gastrointestinal Problems: No Hx Neurological Problems: No Hx Cerebrovascular Accident: Yes Hx Seizures: Yes - Last one 25 yrs ago Hx Headaches: Yes Hx Weakness: Yes Review of Systems Eye: Denies: eye pain, blurred vision ENT: Denies: ear pain, nose congestion, throat swelling Respiratory: Denies: cough, shortness of breath Cardiovascular: Denies: chest pain, palpitations Gastrointestinal: Denies: abdominal pain, diarrhea, nausea, vomiting Musculoskeletal: Denies: back pain, joint pain Skin: Denies: rash Neurological: Denies: headache, numbness Endocrine: Denies: increased thirst, increased urine Hematologic/Lymphatic: Denies: easy bruising All Other Systems: negative except mentioned in HPI Physical Exam Vital Signs Date Time Temp Pulse Resp B/P (MAP) Pulse Ox O2 Delivery O2 Flow Rate FiO2 05/07/18 04:52 98.1 73 16 147/86 95 Room Air 98.1 vitals unremarkable Sp02 EP Interpretation: reviewed, normal General Appearance: well appearing, no apparent distress, alert Head: normocephalic, atraumatic Eyes: bilateral eye PERRL, bilateral eye EOMI ENT: hearing grossly normal, normal pharynx Neck: full range of motion, supple, no meningismus Respiratory: chest non-tender, lungs clear, normal breath sounds Cardiovascular #1: regular rate, rhythm, no murmur Gastrointestinal: normal bowel sounds, non tender, no mass, no organomegaly, no bruit, non-distended Musculoskeletal: back normal, gait/station normal, normal range of motion Neurologic: alert, oriented x3 Psychiatric: mood/affect normal Skin: warm/dry, other - I did not appreciate much evidence of any rash on her forearm. Medical Decision Making Diagnostic Impression: Primary Impression: Scabies ER Course Patient with scabies exposure. No evidence of cellulitis or abscess. We'll discharge home. Last Vital Signs Date Time Temp Pulse Resp B/P (MAP) Pulse Ox O2 Delivery O2 Flow Rate FiO2 05/07/18 05:03 98.1 73 16 147/86 95 Room Air 98.1 Status: unchanged Disposition: HOME, SELF-CARE Condition: Stable Scripts Permethrin* (ELIMITE*) 60 Gm Cream..g. 1 APPLIC TOPIC ONCE, #60 GM 0 Refills Apply cream from head to toe; leave on for 8-14 hours before washing off with water; may reapply in 1 week if live mites appear. Prov: CHELSEY MOLINA M.D. 05/07/18 Additional Instructions: Follow-up with your doctor in 7 days. Return if worse. CHELSEY MOLINA M.D. May 07, 2018 05:23
[2018-05-07 05:28] VITALS: BP 0/0
== END 2018-05-07 05:28 | disposition home or self-care (01) ==
LOC: EMR 05:01
DX: B86 Scabies (principal)
CPT/HCPCS: 99283

== ENCOUNTER 2018-06-17 13:18 | Emergency (ER) | payer OTHER ==
[~2018-06-17] VITALS: Ht 154.9 cm; Wt 79.4 kg
--- NOTE | 2018-06-17 13:43 | Emergency Room Report ---
History of Present Illness General Chief Complaint: Sore Throat Source: Patient Present Illness HPI 52-year-old female patient presents ER complaining of sore throat 1 week. Patient reports that she has not had a fever taking any medications for relief of symptoms. Denies cough chest pain, shortness of breath, abdominal pain, vomiting, diarrhea. Reports that she recently performed oral sex with her girlfriend for the first time recently and noted white exudates in her mouth in the days following sex. Reports has been able to eat although states mild discomfort when eating. Denies other acute symptoms. reports history of HIV, CD4 count elevated, viral load undetectable. Allergies: Coded Allergies: SHELLFISH DERIVED (Unverified Allergy, Unknown, 07/26/16) Uncoded Allergies: SHELLFISH (Allergy, Unknown, 07/26/16) Patient History Past Medical History: see triage record Last Menstrual Period: NA Reviewed Nursing Documentation: PMH: Agreed; PSxH: Agreed Nursing Documentation-PMH Past Medical History: No History, Except For Hx Cardiac Problems: No Hx Cancer: No Hx Gastrointestinal Problems: No Hx Neurological Problems: No Hx Cerebrovascular Accident: No Hx Seizures: Yes - Last one 25 yrs ago Hx Headaches: Yes Hx Weakness: Yes Review of Systems All Other Systems: negative except mentioned in HPI Physical Exam Vital Signs Date Time Temp Pulse Resp B/P (MAP) Pulse Ox O2 Delivery O2 Flow Rate FiO2 06/17/18 13:21 98.0 84 16 122/78 95 Room Air 98.1 Sp02 EP Interpretation: reviewed, normal General Appearance: well appearing, no apparent distress, alert, GCS 15, non- toxic Head: normocephalic, atraumatic Eyes: bilateral eye normal inspection, bilateral eye PERRL ENT: hearing grossly normal, normal pharynx, no angioedema, normal voice, TMs + canals normal, uvula midline, moist mucus membranes Neck: full range of motion, no bony tend Respiratory: lungs clear, normal breath sounds, no rhonchi, no respiratory distress, no accessory muscle use, no wheezing, speaking full sentences Cardiovascular #1: regular rate, rhythm, no edema Musculoskeletal: back normal, digits/nails normal, gait/station normal, normal range of motion, non-tender Neurologic: alert, oriented x3, responsive, motor strength/tone normal, sensory intact Psychiatric: mood/affect normal Skin: no rash Lymphatic: no adenopathy Medical Decision Making PA Attestation Dr. Gore is my supervising Physician whom patient management has been discussed with. Diagnostic Impression: Primary Impression: Sore throat ER Course Pt presents to ED c/o sore throat. DDX considered but are not limited to pharyngitis, laryngitis, URI, peritonsillar abscess, tonsillitis. Low suspicion for peritonsillar abscess, no neck stiffness, no hot potato voice , no stridor. Does not require imaging at this time. VITAL SIGNS are WNL, patient is afebrile. ER COURSE: Physical exam benign, no erythema, no exudates, uvula midline, no open lesions or sores, no lymphadenopathy. Low suspicion for bacterial infection, doesnot require abx. No white patches or exudates, low suspicion for fungal infection. Elevated CD4 and viral load undetectable, opportunistic infection unlikely. advised patient on salt water gargles and Tylenol for relief of symptoms. Declined viscous lidocaine for pain relief. Due to hx of recent sexual activity and hx of HIV, will cover for gonorrhea and chlamydia. Instructed patient to followup with PCP for further testing and evaluation. Patient reports feeling better following administration of medication DISCHARGE: Salt water gargles RX provided for Tylenol for pain and fever symptoms At this time pt is stable for d/c to home. Patient is resting comfortably, in no acute distress, nontoxic appearing, talking without difficulty. Will provide with patient care instructions and any necessary prescriptions. Patient to take medication as instructed. Care plan and follow-up instructions provided. Patient questions asked and answered. Patient instructed to follow-up with primary care provider in 3 - 5 days. ER precautions given. Patient instructed to return to ER immediately for any new or worsening of symptoms including but not limited to intractable vomiting, difficulty breathing, inability to eat. - Please note that this Emergency Department Report was dictated using BigSwervemedical file clerk technology software, occasionally this can lead to erroneous entry secondary to interpretation by the dictation equipment. Last Vital Signs Date Time Temp Pulse Resp B/P (MAP) Pulse Ox O2 Delivery O2 Flow Rate FiO2 06/17/18 13:21 98.0 84 16 122/78 95 Room Air 98.1 Disposition: HOME, SELF-CARE Condition: Stable Scripts Acetaminophen* (TYLENOL EXTRA STRENGTH*) 500 Mg Tablet 500 MG ORAL Q8H PRN for Prn Headache/Temp > 101, #30 TAB 0 Refills Prov: Edward Collins 06/17/18 Patient Instructions: Sexually Transmitted Disease, [id number], Sore Throat Additional Instructions: Followup with primary care provider in 3 -5 days. Salt water gargles Rx provided for Tylenol for pain and fever symptoms Drink plenty of water. Alert all sexual contacts need for testing. Follow-up with STI clinic or PCP for testing and evaluation for STI. Take medications as directed. Patient questions asked and answered. ER precautions given, patient instructed to return to ER immediately for any new or worsening of symptoms including but not limited to intractable vomiting, difficulty breathing, inability to eat. Edward Collins Jun 17, 2018 13:43
[2018-06-17] MEDS ORDERED: Azithromycin 250mg tab ORAL ONE (13:45)
[2018-06-17] MEDS ORDERED: Lidocaine 1% MPF 10mg/ml 5ml INJ ONE (13:45)
[2018-06-17] MEDS ORDERED: Fluconazole 100mg tab ORAL ONE (13:45)
[2018-06-17] MEDS ORDERED: TYLENOL EXTRA500 MG ORAL (13:49)
[2018-06-17 14:50] VITALS: BP 122/78
== END 2018-06-17 14:51 | disposition home or self-care (01) ==
LOC: EMR 13:45
DX: J02.9 Acute pharyngitis, unspecified (principal); Z91.013 Allergy to seafood
CPT/HCPCS: 96372; 99283; J0696; Q0144

== ENCOUNTER 2018-08-06 08:27 | Emergency (ER) | payer OTHER ==
[~2018-08-06] VITALS: Ht 162.6 cm; Wt 79.4 kg
[2018-08-06] MEDS ORDERED: Lidocaine 1% MPF 10mg/ml 5ml INJ ONE (09:00)
[2018-08-06] MEDS ORDERED: Azithromycin 250mg tab ORAL ONE (09:00)
[2018-08-06 09:39] LABS: APPEARANCE,URINE CLEAR; COLOR,URINE YELLOW
[2018-08-06 09:40] LABS: BILIRUBIN, URINE NEGATIVE (NEGATIVE); GLUCOSE, URINE (UA) NEGATIVE (NEGATIVE); KETONES,URINE NEGATIVE (NEGATIVE); LEUKOCYTE ESTERASE ,URINE 2+ (NEGATIVE); NITRITE,URINE NEGATIVE (NEGATIVE); PH,URINE 5 (4.5-8.0); PROTEIN,URINE 1+ (NEGATIVE); UROBILINOGEN,URINE NORMAL MG/DL (0.0-1.0)
--- NOTE | 2018-08-06 09:52 | Emergency Room Report ---
History of Present Illness General Chief Complaint: General Complaint Source: Patient Present Illness HPI Patient states that 2 days ago she had unprotected sex with a new partner. She states that since that time she has noticed a burning sensation around the skin of her vagina. She also states that she's had a musty odor to her discharge. She denies pelvic pain or vaginal pain. She denies development of any lesions. She states she is HIV positive. She states that she will no longer be having any kind of sexual contact with this person. She denies fever or chills. She denies dysuria or hematuria. She has no other complaints. Allergies: Coded Allergies: SHELLFISH DERIVED (Unverified Allergy, Unknown, 07/26/16) Uncoded Allergies: SHELLFISH (Allergy, Unknown, 07/26/16) Patient History Past Medical History: see triage record, HIV, other - HLP Social History: Denies: smoking, alcohol use, drug use Last Menstrual Period: 3 weeks ago Reviewed Nursing Documentation: PMH: Agreed; PSxH: Agreed Nursing Documentation-PMH Past Medical History: No History, Except For Hx Cancer: No Hx Gastrointestinal Problems: No Hx Neurological Problems: No Hx Cerebrovascular Accident: No Hx Seizures: Yes - Last one 25 yrs ago Hx Headaches: Yes Hx Weakness: Yes Review of Systems All Other Systems: negative except mentioned in HPI Physical Exam Vital Signs Date Time Temp Pulse Resp B/P (MAP) Pulse Ox O2 Delivery O2 Flow Rate FiO2 08/06/18 08:34 98.4 87 14 96/68 99 Room Air 98.4 Sp02 EP Interpretation: reviewed, normal General Appearance: no apparent distress, alert, GCS 15, non-toxic Head: normocephalic, atraumatic Eyes: bilateral eye normal inspection, bilateral eye PERRL ENT: hearing grossly normal, normal pharynx, no angioedema, normal voice Neck: full range of motion, supple/symm/no masses Respiratory: no respiratory distress, no retraction, no accessory muscle use, speaking full sentences Gastrointestinal: normal bowel sounds, non tender, soft, non-distended, no guarding, no rebound Rectal: deferred Genitourinary: normal inspection, ext genitalia/vag normal Musculoskeletal: back normal, gait/station normal, normal range of motion, non- tender, calf tenderness Neurologic: alert, oriented x3, responsive, motor strength/tone normal, sensory intact, speech normal Psychiatric: judgement/insight normal, memory normal, mood/affect normal, no suicidal/homicidal ideation Skin: normal color, no rash, warm/dry, well hydrated Medical Decision Making Diagnostic Impression: Primary Impression: STI (sexually transmitted infection) Additional Impression: Vaginitis ER Course This patient presents for concern of a sexually transmitted infection. The patient had unprotected sex and is at risk for this. The patient was educated that treatment for gonorrhea and chlamydia does not treat HIV or syphilis. The patient is also educated that those tests would have to be done as an outpatient. The patient was given presumptive treatment at their request. Overall, the patient's evaluation is benign. I have low suspicion for PID based on history and physical exam. The patient was instructed to follow-up closely with her primary care physician. The patient also has a musty odor to her discharge, so she could also have a bacterial vaginosis. I will go ahead and treat presumptively for this also. The patient's UA is contaminated. I will go ahead and treat with a course of abx. Given all the abx this patient will finish, it is highly likely that she will develop a laura vaginitis, so I will also give diflucan. The patient has a follow-up appointment with her primary care physician tomorrow. The patient is given close return precautions and follow-up instructions. Laboratory Tests Test 08/06/18 08:35 Urine Color Yellow Urine Appearance Clear Urine pH 5 (4.5-8.0) Urine Specific Effie 1.025 (1.005-1.035) Urine Protein 1+ (NEGATIVE) H Urine Glucose (UA) Negative (NEGATIVE) Urine Ketones Negative (NEGATIVE) Urine Blood 4+ (NEGATIVE) H Urine Nitrite Negative (NEGATIVE) Urine Bilirubin Negative (NEGATIVE) Urine Urobilinogen Normal MG/DL (0.0-1.0) Urine Leukocyte Esterase 2+ (NEGATIVE) H Urine RBC 2-4 /HPF (0 - 2) H Urine WBC 5-10 /HPF (0 - 2) H Urine Squamous Epithelial Cells Moderate /LPF (NONE/OCC) H Urine Bacteria Few /HPF (NONE) Urine Mucus Few /LPF (NONE/OCC) H Urine HCG, Qualitative Negative (NEGATIVE) Last Vital Signs Date Time Temp Pulse Resp B/P (MAP) Pulse Ox O2 Delivery O2 Flow Rate FiO2 08/06/18 08:34 98.4 87 14 96/68 99 Room Air 98.4 Status: improved Disposition: HOME, SELF-CARE Condition: Improved Referrals: NON PHYSICIAN (PCP) Meenakshi Owusu DO Aug 06, 2018 09:52
[2018-08-06] MEDS ORDERED: METRONIDAZOLE500 MG ORAL (09:56)
[2018-08-06] MEDS ORDERED: FLUCONAZOLE100 MG ORAL (09:56)
[2018-08-06] MEDS ORDERED: NITROFURANTOIN100 M2 ORAL (09:56)
[2018-08-06 10:08] VITALS: BP 106/70
== END 2018-08-06 10:08 | disposition home or self-care (01) ==
LOC: EMR 08:59
DX: A64 Unspecified sexually transmitted disease (principal); N76.0 Acute vaginitis; Z91.013 Allergy to seafood
CPT/HCPCS: 81003; 81025; 96372; 96374; 99284; J0696; Q0144

== ENCOUNTER 2019-02-07 08:24 | Emergency (ER) | payer MEDICAID, OTHER ==
[~2019-02-07] VITALS: Ht 154.9 cm; Wt 81.6 kg
[~2019-02-07 08:24] MED LIST changes: +METRONIDAZOLE500 MG ORAL; +NITROFURANTOIN100 M2 ORAL
[2019-02-07 08:45] VITALS: BP 129/82
--- NOTE | 2019-02-07 08:46 | NUR ---
ED Nurse Note: walked in to ED from home due to swelling and redness on below right eye for 2 weeks. pt denies any vision changes, just c/o intermittent blurry vision. AAO x4. respirations even and non-labored noted. will wait for the further order.
--- NOTE | 2019-02-07 08:48 | Emergency Room Report ---
History of Present Illness General Chief Complaint: Skin Rash/Abscess Source: Medical Record Present Illness HPI Patient 53-year-old female brought in by self after increased right-sided facial swelling and discoloration. 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 She had prior history of HIV. She denies any visual changes. She was noted to have increased swelling to the right cheek. Patient had been taking Retin-A as well as a topical steroid. She states she is also been taking 1 of the medication but cannot recall what the name is and does not have it available. Patient had been noted to have some increased diffuse joint pain. Allergies: Coded Allergies: SHELLFISH DERIVED (Unverified Allergy, Unknown, 07/26/16) Uncoded Allergies: SHELLFISH (Allergy, Unknown, 07/26/16) Patient History Past Medical History: see triage record Last Menstrual Period: last year Reviewed Nursing Documentation: PMH: Agreed; PSxH: Agreed Nursing Documentation-PMH Past Medical History: No History, Except For Hx Cardiac Problems: No - HIV, hypercholesterolemia Hx Hypertension: No - Lupus Hx Pacemaker: No Hx Asthma: No Hx COPD: No Hx Diabetes: No Hx Cancer: No Hx Gastrointestinal Problems: Yes Hx Dialysis: No History Of Psychiatric Problem: Yes - Anxiety Hx Neurological Problems: No Hx Cerebrovascular Accident: No Hx Seizures: No Hx Headaches: Yes Hx Weakness: Yes Review of Systems All Other Systems: negative except mentioned in HPI Physical Exam Vital Signs Date Time Temp Pulse Resp B/P (MAP) Pulse Ox O2 Delivery O2 Flow Rate FiO2 02/07/19 08:28 98.1 84 16 129/82 97 Room Air General Appearance: well appearing, no apparent distress, alert, GCS 15, obese Head: normocephalic, atraumatic Eyes: bilateral eye EOMI ENT: hearing grossly normal, normal voice Neck: full range of motion, supple Respiratory: no respiratory distress, speaking full sentences Gastrointestinal: normal inspection Musculoskeletal: no calf tenderness Neurologic: normal gait Psychiatric: mood/affect normal Skin: other - right side facial swelling mild with some discoloration to check , no discharge Medical Decision Making Diagnostic Impression: Primary Impression: Discoid lupus ER Course Presented for right cheek redness. Differential diagnosis include was not limited to discoid lupus, medication reaction, sinusitis, among others. patient has a benign exam and does not appear to require any further imaging or laboratory testing at this time. Patient appears to have some erythema to the area where she is applying Retin-A. Patient was advised to hold this medication and follow-up with her primary care physician for reevaluation. Patient was advised to seek care with her primary care physician for Rheumatology referral. Last Vital Signs Date Time Temp Pulse Resp B/P (MAP) Pulse Ox O2 Delivery O2 Flow Rate FiO2 02/07/19 08:28 98.1 84 16 129/82 97 Room Air Status: improved Disposition: HOME, SELF-CARE Yuan Chakraborty MD Feb 07, 2019 08:48
--- NOTE | 2019-02-07 08:52 | NUR ---
ER DISCHARGE NOTE: Patient is cleared to be discharged per ERMD, pt is aox4, on room air, with stable vital signs. pt was given dc instructions, pt was able to verbalize understanding, pt instructed to follow up with engineer process, pt id band removed. pt is able to ambulate with steady gait. pt took all belongings.
[2019-02-07 08:53] VITALS: BP 129/82
== END 2019-02-07 08:59 | disposition home or self-care (01) ==
LOC: EMR 08:49
DX: L93.0 Discoid lupus erythematosus (principal); E66.9 Obesity, unspecified; Z68.34 Body mass index [BMI] 34.0-34.9, adult; B20 Human immunodeficiency virus [HIV] disease; F41.9 Anxiety disorder, unspecified; E78.00 Pure hypercholesterolemia, unspecified
CPT/HCPCS: 99282

== ENCOUNTER 2019-03-09 23:31 | Emergency (ER) | payer OTHER ==
[~2019-03-09] VITALS: Ht 154.9 cm; Wt 81.6 kg
[2019-03-09] MEDS ORDERED: PREZCOBIX 8001 EACH PO (23:41)
--- NOTE | 2019-03-09 23:51 | NUR ---
ED Nurse Note: pt walked in c/o vaginal pain, foul odor and white discharge 1wk, vss, resp even and unlabored on RA, will cont monitor.
[2019-03-09 23:52] VITALS: BP 129/78
[2019-03-10] MEDS ORDERED: VISTARIL10 MG ORAL (00:24)
[2019-03-10] MEDS ORDERED: METROGEL-VAGINA70 G1 VAGIN (00:24)
[2019-03-10 00:29] VITALS: BP 129/74
--- NOTE | 2019-03-10 00:29 | NUR ---
ED Nurse Note: pt cleared to be d/c per ER provider, pt discharge and aftercare instruction provided w/ prescription sent electronically, pt education done via discussion and handout, pt advised to follow up with account services associate or return to ed if sx worsen or new sx develop, pt verbalized understanding and agrees with plan, vss, ambulatory w/steady gait, left w/ all belongings.
--- NOTE | 2019-03-10 01:55 | Emergency Room Report ---
History of Present Illness General Chief Complaint: Vaginal Source: Patient Present Illness HPI This is a 53-year-old female presented after increased vaginal itching and discharge. Patient gradual onset of symptoms. She reports having recent she denies any thick white discharge. She reports using a Monistat cream without any relief. Patient had been postmenopausal approximately 1 year. She denies any fever. Patient had recently been on antibiotics for eye infection. Allergies: Coded Allergies: SHELLFISH DERIVED (Unverified Allergy, Unknown, 07/26/16) Uncoded Allergies: SHELLFISH (Allergy, Unknown, 07/26/16) Patient History Past Medical History: see triage record Last Menstrual Period: KATERINA Now: No Reviewed Nursing Documentation: PMH: Agreed; PSxH: Agreed Nursing Documentation-PMH Past Medical History: No History, Except For Hx Cardiac Problems: No - HIV, hypercholesterolemia Hx Hypertension: No - Lupus Hx Pacemaker: No Hx Asthma: No Hx COPD: No Hx Diabetes: No Hx Cancer: No Hx Gastrointestinal Problems: Yes Hx Dialysis: No Hx Neurological Problems: No Hx Cerebrovascular Accident: No Hx Seizures: No Hx Headaches: Yes Hx Weakness: Yes Review of Systems All Other Systems: negative except mentioned in HPI Physical Exam Vital Signs Date Time Temp Pulse Resp B/P (MAP) Pulse Ox O2 Delivery O2 Flow Rate FiO2 03/09/19 23:37 98.6 82 16 129/78 98 Room Air General Appearance: well appearing, no apparent distress, alert, GCS 15, non- toxic Head: normocephalic, atraumatic ENT: hearing grossly normal, normal voice Neck: full range of motion, supple Respiratory: lungs clear, normal breath sounds, no rhonchi, no respiratory distress, speaking full sentences Cardiovascular #1: normal inspection, regular rate, rhythm, no edema Gastrointestinal: normal inspection Musculoskeletal: normal inspection, no calf tenderness Neurologic: normal inspection, alert, oriented x3, responsive, normal gait Psychiatric: mood/affect normal Skin: no rash Medical Decision Making Diagnostic Impression: Primary Impression: Vaginitis ER Course .Patient presented for vaginal discharge and itching. Differential diagnosis include was not limited to bacterial vaginosis, atrophic vaginitis, yeast infection among others. Patient has a benign exam and does not appear to require any further imaging or laboratory testing at this time. Patient was noted to be postmenopausal. Pelvic exam showed some slight atrophy with some watery thin discharge. Patient was given prescription for MetroGel. She is advised to follow-up with LEAD [employer]NER SUPERVISOR for further evaluation. There does not appear to be evidence of yeast infection. Last Vital Signs Date Time Temp Pulse Resp B/P (MAP) Pulse Ox O2 Delivery O2 Flow Rate FiO2 03/10/19 00:29 98.6 80 16 129/74 100 Room Air Status: improved Disposition: HOME, SELF-CARE Scripts Hydroxyzine HCl (Hydroxyzine HCl) 10 Mg Tablet 10 MG ORAL EVERY 6 HOURS for itching, #20 TAB 0 Refills Prov: Yuan Chakraborty MD 03/10/19 Metronidazole* (METROGEL-VAGINAL*) 70 Gm Gel.w.appl 1 APPL VAGIN EVERY 12 HOURS, #70 GM Prov: Yuan Chakraborty MD 03/10/19 Referrals: NON PHYSICIAN (PCP) Patient Instructions: Vaginitis Yuan Chakraborty MD Mar 10, 2019 01:55
== END 2019-03-10 00:29 | disposition home or self-care (01) ==
LOC: EMR 23:51
DX: N76.0 Acute vaginitis (principal); E78.00 Pure hypercholesterolemia, unspecified; B20 Human immunodeficiency virus [HIV] disease; Z91.013 Allergy to seafood
CPT/HCPCS: 99282

== ENCOUNTER 2019-12-28 11:58 | Emergency (ER) | payer OTHER ==
[~2019-12-28] VITALS: Ht 154.9 cm; Wt 81.6 kg
[~2019-12-28 11:58] MED LIST changes: +METROGEL-VAGINA70 G1 VAGIN; +PREZCOBIX 8001 EACH PO; +VISTARIL10 MG ORAL
[2019-12-28] MEDS ORDERED: Omnipaque-300 100ml vial INJ PRN (12:15)
[2019-12-28 12:20] VITALS: BP 107/68
--- NOTE | 2019-12-28 12:20 | NUR ---
ED Nurse Note: Pt ambulated to ED d/t abdominal pain, nausea, constipation that started this morning. Placed on bed and gown. Established Iv site on RT AC with 20G. Blood specimen sent to labs
[2019-12-28] MEDS ORDERED: [UNRECOGNIZED DRUG - OTHER] RIGHT EYE (12:23)
[2019-12-28] MEDS ORDERED: METHOTREXATE2.5 MG PO (12:23)
[2019-12-28] MEDS ORDERED: HYDROXYCHLOROQ200 M1 PO (12:23)
[2019-12-28] MEDS ORDERED: FOLIC ACID1 MG ORAL (12:23)
[2019-12-28] MEDS ORDERED: [UNRECOGNIZED DRUG - OTHER] PO (12:23)
[2019-12-28] MEDS ORDERED: TACROLIMUS TP (12:24)
[2019-12-28] MEDS ORDERED: TRAZODONE HCL50 MG ORAL (12:24)
[2019-12-28] MEDS ORDERED: Ketorolac 30mg Inj IV ONE (12:30)
[2019-12-28 12:40] LABS: APPEARANCE,URINE CLEAR; BILIRUBIN, URINE NEGATIVE (NEGATIVE); GLUCOSE, URINE (UA) NEGATIVE (NEGATIVE); KETONES,URINE NEGATIVE (NEGATIVE); LEUKOCYTE ESTERASE ,URINE NEGATIVE (NEGATIVE); NITRITE,URINE NEGATIVE (NEGATIVE); PH,URINE 6 (4.5-8.0); PROTEIN,URINE 2+ (NEGATIVE); UROBILINOGEN,URINE NORMAL MG/DL (0.0-1.0)
--- NOTE | 2019-12-28 12:41 | NUR ---
ED Nurse Note: X-ray on bedside
[2019-12-28 12:46] LABS: COLOR,URINE YELLOW
[2019-12-28 12:47] LABS: HEMATOCRIT 43.4 % (37.0-47.0); HEMOGLOBIN 14.6 G/DL (12.0-16.0); MEAN CORPUSCULAR VOLUME 89 FL (80-99); PLATELET COUNT 223 K/UL (150-450); RED BLOOD COUNT 4.88 M/UL (4.20-5.40); RED CELL DISTRIBUTION WIDTH 13.1 % (11.6-14.8); WHITE BLOOD COUNT 6.6 K/UL (4.8-10.8)
[2019-12-28 12:57] LABS: INR 1.1 (0.9-1.1)
[2019-12-28 13:04] LABS: ANION GAP 8 mmol/L (5-15); BLOOD UREA NITROGEN 18 mg/dL (7-18); CALCIUM 9.4 MG/DL (8.5-10.1); CARBON DIOXIDE 30 MMOL/L (21-32); CHLORIDE 103 MMOL/L (98-107); CREATININE 0.8 MG/DL (0.55-1.30); POTASSIUM 3.8 MMOL/L (3.5-5.1); SODIUM 140 MMOL/L (136-145)
[2019-12-28 13:05] LABS: ALANINE AMINOTRANSFERASE 25 U/L (12-78); ALBUMIN 4.2 G/DL (3.4-5.0); ALBUMIN/GLOBULIN RATIO 0.9 (1.0-2.7); ALKALINE PHOSPHATASE 124 U/L (46-116); ASPARTATE AMINO TRANSFERASE 28 U/L (15-37); BILIRUBIN,TOTAL 0.4 MG/DL (0.2-1.0)
--- NOTE | 2019-12-28 13:33 | NUR ---
ED Nurse Note: pt in ct
--- NOTE | 2019-12-28 13:39 | Diagnostic Imaging Report ---
Indication: Chest pain Comparison: 02/23/2018 A single view chest radiograph was obtained. Findings: Cardiomediastinal appearance is within normal limits for age. The lungs are clear. Pulmonary vascularity is appropriate. The diaphragmatic contour is smooth and costophrenic angles are sharp. No pleural effusions are identified. The bones are unremarkable. Impression: No acute findings
--- NOTE | 2019-12-28 14:20 | NUR ---
ED Nurse Note: Pt returned from CT via wheelchair, on stable condition.
--- NOTE | 2019-12-28 14:56 | Diagnostic Imaging Report ---
INDICATION: Abdominal pain TECHNIQUE: Continuous helical transaxial imaging of the abdomen and pelvis was obtained from the lung bases to the pubic symphysis during intravenous contrast administration. Coronal 2-D reformats were also obtained. Study obtained in a Siemens sensation [address] Automatic Exposure Control was utilized. Total Dose length Product (DLP): 1435.[address] Dose Index Volume (CTDIvol): 25.7 mGy COMPARISON: 10/23/2015 CT abdomen pelvis FINDINGS: Lungs: The visualized lung bases are clear. Liver: Unremarkable Gallbladder/biliary system: No gallstones are identified. There is no evidence of intrahepatic or extrahepatic biliary ductal dilatation. Spleen: Small nodule at the inferior pole of the spleen noted consistent with accessory splenic tissue. Pancreas: Unremarkable Kidneys: No hydronephrosis identified. Both kidneys enhance symmetrically.. Adrenal glands: Unremarkable Aorta/IVC: Mild calcification of aorta noted consistent with atherosclerotic disease. Bowel: Appendix is normal. There is no evidence of bowel obstruction. Bladder: Unremarkable Peritoneum: There is no free fluid. There is slight lobulation of the uterine contour which could be due to underlying fibroids not evaluated well on this study. There is a small umbilical hernia containing fat.. Bones: Unremarkable IMPRESSION: No acute findings. Multiple incidental findings as described above The CT scanner at [facility] is accredited by the [employer] and the scans are performed using dose optimization techniques as appropriate to a performed exam including Automatic Exposure control.
--- NOTE | 2019-12-28 15:02 | Emergency Room Report ---
History of Present Illness General Chief Complaint: Abdominal Pain Source: Patient Present Illness HPI 54-year-old female with history of HIV and lupus currently controlled with medication here complaining of 1 day of acute onset of a 10 out of 10 abdominal pain diffusely and constipation. Complains of minimal blood that she noted earlier today. Denies nausea vomiting, symptoms. Denies recent travel. Reports that her symptoms started after she had a taco truck last night. Complains of flatulence. Reports that her last visit with her infectious disease doctor was 2 weeks ago and her CD4 count is within normal limits. Denies urinary frequency and urgency, denies at this time. Has not taken medication for symptom relief. Allergies: Coded Allergies: SHELLFISH DERIVED (Unverified Allergy, Unknown, 07/26/16) Patient History Past Medical History: see triage record Past Surgical History: none Last Menstrual Period: none Now: No Immunizations: UTD Reviewed Nursing Documentation: PMH: Agreed; PSxH: Agreed Nursing Documentation-PMH Past Medical History: No History, Except For Hx Pacemaker: No Hx Asthma: No Hx COPD: No Hx Diabetes: No Hx Cancer: No Hx Gastrointestinal Problems: Yes Hx Dialysis: No Hx Neurological Problems: No Hx Cerebrovascular Accident: No Hx Seizures: No Hx Headaches: Yes Hx Weakness: Yes Review of Systems All Other Systems: negative except mentioned in HPI Physical Exam Vital Signs Date Time Temp Pulse Resp B/P (MAP) Pulse Ox O2 Delivery O2 Flow Rate FiO2 12/28/19 12:07 97.3 102 18 107/68 (81) 100 Room Air Sp02 EP Interpretation: reviewed, normal General Appearance: no apparent distress, alert, GCS 15, non-toxic Head: normocephalic, atraumatic Eyes: bilateral eye normal inspection, bilateral eye PERRL ENT: hearing grossly normal, normal pharynx, no angioedema, normal voice Neck: full range of motion, supple/symm/no masses Respiratory: chest non-tender, lungs clear, normal breath sounds, no rhonchi, no wheezing, speaking full sentences Cardiovascular #1: normal inspection, regular rate, rhythm, no murmur, normal capillary refill Cardiovascular #2: 2+ radial (R), 2+ radial (L) Gastrointestinal: normal bowel sounds, non tender, soft, no mass, no organomegaly, no peritonitis, no bruit, non-distended, no guarding, no hernia, no pulsatile mass, no rebound Rectal: deferred Genitourinary: normal inspection, no CVA tenderness Musculoskeletal: back normal Neurologic: alert, motor strength/tone normal, oriented x3, sensory intact, responsive, speech normal Psychiatric: judgement/insight normal, memory normal, mood/affect normal, no suicidal/homicidal ideation Skin: no rash Lymphatic: no adenopathy Medical Decision Making PA Attestation All my diagnosis and treatment plans were reviewed ad discussed with my supervising physician Dr. Chakraborty Diagnostic Impression: Primary Impression: Constipation Additional Impressions: Acute gastroenteritis Nodule of spleen ER Course 54-year-old female with history of HIV and lupus currently controlled with medication here complaining of 1 day of acute onset of a 10 out of 10 abdominal pain diffusely and constipation. Complains of minimal blood that she noted earlier today. Denies nausea vomiting, symptoms. Denies recent travel. Reports that her symptoms started after she had a taco truck last night. Complains of flatulence. Reports that her last visit with her infectious disease doctor was 2 weeks ago and her CD4 count is within normal limits. Denies urinary frequency and urgency, denies at this time. Has not taken medication for symptom relief. Ddx considered but are not limited to: appendicitis, cholecystis, gastritis, gastroenteritis, UTI, pyelonephritis, SBO, diverticulitis, influenza with GI manifestation, OH, constipation Vital signs: are WNL, pt. is afebrile H&PE are most consistent with: Constipation, acute gastroenteritis, incidental finding of a splenic nodule ORDERS: abdominal CT, abdominal pain set, EKG, chest x-ray, troponin, proBNP, omeprazole, Zofran, Colace ED INTERVENTIONS: NS bolus, Zofran, Pepcid DISCHARGE: At this time pt. is stable for d/c to home. Will provide printed patient care instructions, and any necessary prescriptions. Care plan and follow up instructions have been discussed with the patient prior to discharge. Patient to follow-up primary care provider also referral to equipment operation instructor needed however patient reports that she had her colonoscopy done a year ago and it was within normal limits. At this time patient can be discharged with dietary modification I also advised patient to have primary doctor test for H. pylori and can be very likely due to eating out and eating taco trucks. Patient agrees with the above treatment assessment. Advised patient return to the emergency room if worsening symptoms. EKG Diagnostic Results Rate: normal Rhythm: NSR ST Segments: no acute changes Other Impression No acute ST changes Chest X-Ray Diagnostic Results Chest X-Ray Diagnostic Results : Chest X-Ray Ordered: Yes # of Views/Limited/Complete: 1 View Indication: Other EP Interpretation: Yes PA Xray: Interpretation reviewed, by supervising MD, and agrees with findings. Interpretation: no consolidation, no effusion, no pneumothorax Impression: No acute disease Electronically Signed by: Neli Fitzpatrick PA-C CT/MRI/US Diagnostic Results CT/MRI/US Diagnostic Results : Imaging Test Ordered: CT abdomen pelvis with contrast Impression Incidental finding of a splenic nodule otherwise within normal limits Last Vital Signs Date Time Temp Pulse Resp B/P (MAP) Pulse Ox O2 Delivery O2 Flow Rate FiO2 12/28/19 13:16 97.3 12/28/19 12:20 102 18 Room Air 12/28/19 12:20 107/68 100 Status: improved Disposition: HOME, SELF-CARE Condition: Stable Scripts Omeprazole (OMEPRAZOLE) 20 Mg Tablet.dr 20 MG ORAL DAILY, #20 TAB Prov: Neli Gibbons 12/28/19 Docusate Sodium* (COLACE*) 100 Mg Capsule 100 MG ORAL THREE TIMES A DAY, #21 CAP Prov: Neli Gibbosn 12/28/19 Ondansetron (Zofran) 4 Mg Tablet 4 MG ORAL Q6H PRN for Nausea & Vomiting, #10 TAB Prov: Neli Gibbons 12/28/19 Referrals: NON PHYSICIAN (PCP) Patient Instructions: Abdominal Pain, Adult, Constipation, Adult Additional Instructions: Follow-up with your primary care provider regarding the incidental finding of a nodule in your spleen. Increase oral hydration and fiber intake. Also have your primary doctor tested for H. pylori as you may be having H. pylori infection due to eating at a taco stop. Neli Gibbons Dec 28, 2019 15:02
[2019-12-28] MEDS ORDERED: COLACE100 MG ORAL (15:04)
[2019-12-28] MEDS ORDERED: ZOFRAN4 M1 ORAL (15:04)
[2019-12-28] MEDS ORDERED: OMEPRAZOLE20 M3 ORAL (15:04)
[2019-12-28 15:14] VITALS: BP 110/78
--- NOTE | 2019-12-28 15:14 | NUR ---
ER DISCHARGE NOTE: Patient is cleared to be discharged per ERMD, pt is aox4, on room air, with stable vital signs. pt was given dc and prescription instructions, pt was able to verbalize understanding, pt id band and iv site removed without complications. pt is able to ambulate with steady gait. pt took all belongings.
== END 2019-12-28 15:14 | disposition home or self-care (01) ==
LOC: EMR 12:42
DX: K59.00 Constipation, unspecified (principal); K52.9 Noninfective gastroenteritis and colitis, unspecified; R07.9 Chest pain, unspecified; R16.1 Splenomegaly, not elsewhere classified; B20 Human immunodeficiency virus [HIV] disease; M32.9 Systemic lupus erythematosus, unspecified; Z79.899 Other long term (current) drug therapy; Z91.013 Allergy to seafood
CPT/HCPCS: 36415; 71045; 74177; 80053; 80307; 81003; 83690; 84484; 85007; 85025; 85610; 85730; 93005; 96361; 96374; 96375; J1885; J2405; J7030; Q9967; S0028; Z7502; 99284

== ENCOUNTER 2020-12-10 20:12 | Emergency (ER) | payer OTHER ==
[~2020-12-10] VITALS: Ht 154.9 cm; Wt 83.9 kg
[~2020-12-10 20:12] MED LIST changes: +COLACE100 MG ORAL; +FOLIC ACID1 MG ORAL; +HYDROXYCHLOROQ200 M1 PO; +METHOTREXATE2.5 MG PO; +OMEPRAZOLE20 M3 ORAL; +TACROLIMUS TP; +TRAZODONE HCL50 MG ORAL; +ZOFRAN4 M1 ORAL; +[UNRECOGNIZED DRUG - OTHER] PO; +[UNRECOGNIZED DRUG - OTHER] RIGHT EYE
--- NOTE | 2020-12-10 20:30 | NUR ---
Nurse Note: Pt arrived c/o LT knee pain after jumping on the bed trying to turn off the ceiling fan strings around 2 hrs ago. Pt stated she went to the beach afterwards and walked around. Pt LT knee swollen, pt reports LT knee 10/10 pain. PT able to move toes, feels sensation on leg.
--- NOTE | 2020-12-10 20:35 | NUR ---
Nurse Note: PT denies pain meds. x-ray at pt side.
[2020-12-10] MEDS ORDERED: Acetaminophen 500mg (ES) tab ORAL ONE (21:15)
--- NOTE | 2020-12-10 21:19 | NUR ---
Nurse Note: Pt expressed pain after x-ray. ERMD aware and pain meds ordered. Pt stated pain is controlled when she is not moving.
--- NOTE | 2020-12-10 21:22 | Diagnostic Imaging Report ---
EXAM: XR Left Knee, 3 Views CLINICAL HISTORY: PAIN TECHNIQUE: Three views of the left knee. COMPARISON: No relevant prior studies available. FINDINGS: Negative for fracture or dislocation. Small suprapatellar joint effusion. Tricompartmental degenerative changes.
[2020-12-10] MEDS ORDERED: TYLENOL EXTRA500 MG ORAL (21:28)
[2020-12-10 21:37] VITALS: BP 140/84
--- NOTE | 2020-12-10 21:37 | NUR ---
ED Nurse Note: Pt cleared by health care Provider for discharge. DC instructions/prescription was given and explained to pt and verbalized understanding of teachings. All medical deviecs such as ID band removed. Pt is AAO x4, left with personal wheelchair and left with all personal belongings. provided LT knee immobllizer and crutches.
--- NOTE | 2020-12-12 07:59 | Emergency Room Report ---
History of Present Illness General Chief Complaint: Lower Extremity Injury Source: Patient Present Illness HPI 55-year-old female presents with left knee pain. States that she twisted her knee while standing up to turn off a light switch. States it did not hurt at first but then she went walking and then became suddenly more painful with swelling. Happened earlier today. Pain is throbbing, 8 out of 10, no nradiating. States he is unable to put weight. Denies any other injuries. No other aggravating relieving factors. 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 COVID-19 Screening: Negative COVID-19 COVID-19 Testing Source: [facility], [place] Patient History Past Medical History: GERD Past Surgical History: none Pertinent Family History: none Social History: Denies: smoking, alcohol use, drug use Last Menstrual Period: n/a Now: No Immunizations: UTD Reviewed Nursing Documentation: PMH: Agreed; PSxH: Agreed Nursing Documentation-PMH Past Medical History: No History, Except For Hx Pacemaker: No Hx Asthma: No Hx COPD: No Hx Diabetes: No Hx Cancer: No Hx Gastrointestinal Problems: Yes Hx Dialysis: No Hx Neurological Problems: No Hx Cerebrovascular Accident: No Hx Seizures: No Hx Headaches: Yes Hx Weakness: Yes Review of Systems All Other Systems: negative except mentioned in HPI Physical Exam Vital Signs Date Time Temp Pulse Resp B/P (MAP) Pulse Ox O2 Delivery O2 Flow Rate FiO2 12/10/20 20:16 98.2 92 18 149/97 (114) 98 Room Air Sp02 EP Interpretation: reviewed, normal General Appearance: no apparent distress, alert, GCS 15, non-toxic Head: normocephalic, atraumatic Eyes: bilateral eye normal inspection, bilateral eye PERRL ENT: hearing grossly normal, normal pharynx, no angioedema, normal voice Neck: full range of motion, supple/symm/no masses Respiratory: chest non-tender, lungs clear, normal breath sounds, speaking full sentences Cardiovascular #1: regular rate, rhythm, no edema Cardiovascular #2: 2+ carotid (R), 2+ carotid (L), 2+ radial (R), 2+ radial (L), 2+ dorsalis pedis (R), 2+ dorsalis pedis (L) Gastrointestinal: normal bowel sounds, non tender, soft, non-distended, no guarding, no rebound Rectal: deferred Genitourinary: normal inspection, no CVA tenderness Musculoskeletal: back normal, normal range of motion, gait/station normal, swelling - L knee Neurologic: alert, motor strength/tone normal, oriented x3, sensory intact, r esponsive, speech normal Psychiatric: judgement/insight normal, memory normal, mood/affect normal, no suicidal/homicidal ideation Reflexes: 3+ bicep (R), 3+ bicep (L), 3+ tricep (R), 3+ tricep (L), 3+ knee (R), 3+ knee (L) Skin: no rash Lymphatic: no adenopathy Procedures Splinting Splinting : Consent: Verbal Pre-Made Type: knee immobilizer Pre-Proc Neuro Vasc Exam: normal Post-Proc Neuro Vasc Exam: normal Patient Tolerated: Well Complications: None Medical Decision Making Diagnostic Impression: Primary Impression: Knee injury Qualified Codes: S89.92XA - Unspecified injury of left lower leg, initial encounter ER Course Hospital Course 55 yo F presents with L knee pain/swelling Differential diagnoses include: Fracture, dislocation, sprain, contusion Clinical course Patient placed on stretcher. After initial history and physical, I ordered pain medications and Xrays of L knee Xrays read shows no acute fracture/dislocation. discussed findings with patient. Likely sprain versus ligamentous. Placed in knee immobilizer, given crutches. Safe for discharge with close outpatient follow-up. I will provide referrals Diagnosis - knee injury Stable and discharged to home with prescription for Tylenol. apply ice, keep elevated. weight bear as tolerated. Followup with PMD. Return to ED if symptoms recur or worsen Other X-Ray Diagnostic Results Other X-Ray Diagnostic Results : X-Ray ordered: Left knee # of Views/Limited Vs Complete: 3 View Indication: Pain EP Interpretation: Yes Interpretation: no dislocation, no soft tissue swelling, no fractures, other - Small suprapatellar effusion Impression: No acute disease Electronically Signed by: Electronically signed by Bashir Murrell MD Last Vital Signs Date Time Temp Pulse Resp B/P (MAP) Pulse Ox O2 Delivery O2 Flow Rate FiO2 1/17/21 21:37 98.3 80 18 140/84 98 Room Air Status: improved Disposition: HOME, SELF-CARE Condition: Stable Scripts Acetaminophen* (TYLENOL EXTRA STRENGTH*) 500 Mg Tablet 500 MG ORAL Q8H PRN for Prn Headache/Temp > 101, #30 TAB 0 Refills Prov: Bashir Murrell MD 12/10/20 Referrals: Kenny Scott MD NON PHYSICIAN [facility] Open 24 hour /7 days a week by Appointment Only [address] [facility] [address] [facility] [address] Patient Instructions: Knee Sprain, [id number] Bashir Murrell MD Dec 12, 2020 07:59
== END 2020-12-10 21:37 | disposition home or self-care (01) ==
LOC: EMR 20:27
DX: S89.92XA Unspecified injury of left lower leg, initial encounter (principal); X50.1XXA Overexertion from prolonged static or awkward postures, initial encounter; Y92.9 Unspecified place or not applicable; K21.9 Gastro-esophageal reflux disease without esophagitis; Z91.013 Allergy to seafood
CPT/HCPCS: 73562; Z7502; 99283